=== PATIENT | female | born 1950 | race Caucasian/White ===

== ENCOUNTER 2019-12-27 23:34 | Emergency (ER) | payer MEDICARE, MEDICAID ==
[~2019-12-27] VITALS: Ht 157.5 cm; Wt 63.6 kg
[2019-12-27] MEDS ORDERED: normal saline 1000ML IV soln IVB ONE (23:40)
--- NOTE | 2019-12-27 23:54 | NUR ---
pt to CT now with stretcher.
[2019-12-28 00:05] LABS: BASOPHILS # (AUTO) 0.1 X10'3 (0-0.2); BASOPHILS % (AUTO) 0.7 % (0-1); EOSINOPHILS # (AUTO) 0.1 X10'3 (0-0.9); EOSINOPHILS % (AUTO) 0.9 % (0-6); HEMOGLOBIN 12.5 g/dl (12.0-16.0); LYMPHOCYTES % (AUTO) 24.8 % (21-51); MEAN CORPUSCULAR HEMOGLOBIN 31.6 PG (27.0-31.0); MEAN CORPUSCULAR HGB CONC 34.6 g/dL (33.0-36.5); MEAN CORPUSCULAR VOLUME 91.5 FL (78-98); MEAN PLATELET VOLUME 7.4 FL (7.4-10.4); MONOCYTES # (AUTO) 0.9 X10'3 (0-0.9); NEUTROPHILS # (AUTO) 4.9 X10'3 (1.8-7.7); NEUTROPHILS % (AUTO) 62.6 % (42-75); PLATELET COUNT 331 X10'3 (140-440); RED BLOOD COUNT 3.94 X10'6 (4.20-5.60); RED CELL DISTRIBUTION WIDTH 13.5 % (11.5-14.5); WHITE BLOOD COUNT 7.9 X10'3 (4.5-11.0)
--- NOTE | 2019-12-28 00:09 | NUR ---
pt back from CT. Up to BS commode, she did well. She did not void, she thought she had to. Back to the [place], hooked up to the monitor. She has her cellphone, she wants to call her sister.
[2019-12-28 00:15] LABS: D-DIMER 0.41 MG/L FEU (0-0.50)
[2019-12-28 00:19] LABS: ALANINE AMINOTRANSFERASE 28 U/L (12-78); ALBUMIN 3.2 G/DL (3.4-5.0); ALBUMIN/GLOBULIN RATIO 1.1 (1.1-1.5); ALKALINE PHOSPHATASE 103 IU/L (46-116); ANION GAP 4 (8-16); ASPARTATE AMINO TRANSFERASE 17 U/L (10-37); BILIRUBIN,TOTAL 0.3 MG/DL (0.1-1.0); BLOOD UREA NITROGEN 15 MG/DL (7-18); BUN/CREATININE RATIO 22.1 (6.6-38.0); CALCIUM 8.5 MG/DL (8.5-10.1); CHLORIDE 101 MMOL/L (99-107); CREATININE 0.68 MG/DL (0.40-0.90); GLUCOSE 102 MG/DL (70-104); SODIUM 135 MMOL/L (135-145); TOTAL CARBON DIOXIDE 30.2 MMOL/L (24-32); eGFR 86 ML/MIN
[2019-12-28] MEDS ORDERED: normal saline 1000ML IV soln IVB ONE (00:30)
[2019-12-28 01:01] VITALS: BP 142/86
== END 2019-12-28 01:03 | disposition home or self-care (01) ==
LOC: ER 23:36
DX: S00.83XA Contusion of other part of head, initial encounter (principal); S20.312A Abrasion of left front wall of thorax, initial encounter; E86.0 Dehydration; R55 Syncope and collapse; I10 Essential (primary) hypertension; Z98.890 Other specified postprocedural states; Z88.8 Allergy status to other drugs, medicaments and biological substances; W18.39XA Other fall on same level, initial encounter; Y93.89 Activity, other specified; Y92.89 Other specified places as the place of occurrence of the external cause; Y99.8 Other external cause status
CPT/HCPCS: 36415; 70450; 71045; 80053; 83880; 84484; 85025; 85379; 93005; 96360; 99284; J7030

== ENCOUNTER 2020-04-07 16:11 | Emergency (ER) | payer MEDICARE, MEDICAID ==
[~2020-04-07] VITALS: Ht 157.5 cm; Wt 2.2 kg
[~2020-04-07 16:11] MED LIST: ACYC200C PO; ARIP5TAB60 PO; ESOM40CA54 PO; LURA60TA2 PO; MIRT15TA PO
[2020-04-07 16:46] LABS: BASOPHILS % (AUTO) 0.6 % (0-1); EOSINOPHILS # (AUTO) 0.1 X10'3 (0-0.9); EOSINOPHILS % (AUTO) 2.3 % (0-6); HEMATOCRIT 33.2 % (35.0-45.0); HEMOGLOBIN 10.9 g/dl (12.0-16.0); LYMPHOCYTES # (AUTO) 1.2 X10'3 (1.1-4.8); LYMPHOCYTES % (AUTO) 18.6 % (21-51); MEAN CORPUSCULAR HEMOGLOBIN 30.2 PG (27.0-31.0); MEAN CORPUSCULAR HGB CONC 32.9 g/dL (33.0-36.5); MEAN CORPUSCULAR VOLUME 91.8 FL (78-98); MEAN PLATELET VOLUME 8.7 FL (7.4-10.4); MONOCYTES # (AUTO) 1.3 X10'3 (0-0.9); MONOCYTES % (AUTO) 21.3 % (2-12); NEUTROPHILS # (AUTO) 3.6 X10'3 (1.8-7.7); NEUTROPHILS % (AUTO) 57.2 % (42-75); PLATELET COUNT 155 X10'3 (140-440); RED BLOOD COUNT 3.62 X10'6 (4.20-5.60); RED CELL DISTRIBUTION WIDTH 15.4 % (11.5-14.5); WHITE BLOOD COUNT 6.3 X10'3 (4.5-11.0)
[2020-04-07 16:55] LABS: ALANINE AMINOTRANSFERASE 13 U/L (12-78); ALBUMIN 2.8 G/DL (3.4-5.0); ALKALINE PHOSPHATASE 97 IU/L (46-116); ANION GAP 1 (8-16); ASPARTATE AMINO TRANSFERASE 11 U/L (10-37); BILIRUBIN,TOTAL 0.2 MG/DL (0.1-1.0); BLOOD UREA NITROGEN 24 MG/DL (7-18); BUN/CREATININE RATIO 25.8 (6.6-38.0); CALCIUM 8.3 MG/DL (8.5-10.1); CHLORIDE 110 MMOL/L (99-107); CREATININE 0.93 MG/DL (0.40-0.90); GLUCOSE 97 MG/DL (70-104); POTASSIUM 4.4 MMOL/L (3.5-5.1); SODIUM 143 MMOL/L (135-145); TOTAL CARBON DIOXIDE 32.4 MMOL/L (24-32); TOTAL PROTEIN 5.6 G/DL (6.4-8.2); eGFR 60 ML/MIN
[2020-04-07 17:03] LABS: MAGNESIUM 2.1 MG/DL (1.5-2.4)
[2020-04-07] MEDS ORDERED: DOXYCYCLINE 100MG CAPSULE PO STA (17:43)
[2020-04-07 17:44] LABS: CLARITY,URINE CLEAR (Clear); COLOR,URINE STRAW (Yellow); GLUCOSE, URINE NEGATIVE (Neg); KETONES,URINE NEGATIVE (Neg); LEUKOCYTE ESTERASE ,URINE TRACE (Neg); NITRITES, URINE NEGATIVE (Neg); OCCULT BLOOD,URINE NEGATIVE (Neg); PROTEIN,URINE NEGATIVE (Neg); UROBILINOGEN,URINE 0.2 E.U/dL (0.2-1.0)
[2020-04-07] MEDS ORDERED: furosemide 20MG tablet PO ONE (17:45)
[2020-04-07 17:47] LABS: UA COLLECTION TYPE VOIDED
[2020-04-07 17:50] LABS: URINE AMPHETAMINE SCREEN NEGATIVE (Neg); URINE BARBITUATE SCREEN NEGATIVE (Neg); URINE BENZODIAZEPINES SCREEN NEGATIVE (Neg); URINE CANNABINOID SCREEN NEGATIVE (Neg); URINE COCAINE SCREEN NEGATIVE (Neg); URINE METHADONE SCREEN NEGATIVE (Neg); URINE OPIATE SCREEN NEGATIVE (Neg); URINE PHENCYCLIDINE SCREEN NEGATIVE (Neg); WBC,URINE 0-4 /HPF (0-4)
[2020-04-07 17:51] LABS: BACTERIA,URINE NONE SEEN /HPF (Neg); RBC,URINE 0-2 /HPF (0-2); SQUAMOUS EPITHELIAL CELL,UR FEW /LPF (FEW)
[2020-04-07 17:56] LABS: TOTAL CELLS COUNTED 100
[2020-04-07] MEDS ORDERED: FURO-150 PO (17:57)
[2020-04-07] MEDS ORDERED: DOXY100C77 PO (17:57)
[2020-04-07 17:58] LABS: ANISOCYTOSIS FEW; HYPOCHROMASIA 1+; PLATELET ESTIMATE NORMAL
--- NOTE | 2020-04-07 18:00 | NUR ---
PT URINATED BEFORE GETTING DISCAHRGE.
[2020-04-07 18:18] VITALS: BP 128/75
== END 2020-04-07 18:18 | disposition home or self-care (01) ==
LOC: ER 16:11
DX: L03.116 Cellulitis of left lower limb (principal); L03.115 Cellulitis of right lower limb; R60.0 Localized edema; I10 Essential (primary) hypertension; Z98.890 Other specified postprocedural states; Z88.8 Allergy status to other drugs, medicaments and biological substances; Z79.899 Other long term (current) drug therapy
CPT/HCPCS: 36415; 71045; 80053; 80305; 81001; 83735; 83880; 84145; 85025; 87088; 93005; 99285

== ENCOUNTER 2020-11-09 16:15 | Emergency (ER) | payer MEDICARE, MEDICAID ==
[~2020-11-09] VITALS: Ht 149.9 cm; Wt 81.8 kg
[~2020-11-09 16:15] MED LIST changes: +LURA60TA PO; -LURA60TA2 PO; +MIRT-116 PO; -MIRT15TA PO
--- NOTE | 2020-11-09 16:49 | NUR ---
PT TO CT
[2020-11-09 17:26] LABS: CLARITY,URINE CLEAR (Clear); COLOR,URINE YELLOW (Yellow); GLUCOSE, URINE NEGATIVE (Neg); KETONES,URINE NEGATIVE (Neg); LEUKOCYTE ESTERASE ,URINE NEGATIVE (Neg); NITRITES, URINE NEGATIVE (Neg); OCCULT BLOOD,URINE TRACE-INTACT (Neg); PROTEIN,URINE NEGATIVE (Neg); UROBILINOGEN,URINE 0.2 E.U/dL (0.2-1.0)
[2020-11-09 17:28] LABS: UA COLLECTION TYPE STRAIGHT CATH
[2020-11-09 17:32] LABS: BACTERIA,URINE NONE SEEN /HPF (Neg); MUCUS STRANDS NONE SEEN /LPF (Neg); RBC,URINE 0-2 /HPF (0-2); SQUAMOUS EPITHELIAL CELL,UR NONE SEEN /LPF (FEW); WBC,URINE 0-4 /HPF (0-4)
[2020-11-09 17:34] LABS: URINE AMPHETAMINE SCREEN NEGATIVE (Neg); URINE BARBITUATE SCREEN NEGATIVE (Neg); URINE BENZODIAZEPINES SCREEN NEGATIVE (Neg); URINE CANNABINOID SCREEN NEGATIVE (Neg); URINE COCAINE SCREEN NEGATIVE (Neg); URINE METHADONE SCREEN NEGATIVE (Neg); URINE OPIATE SCREEN NEGATIVE (Neg); URINE PHENCYCLIDINE SCREEN NEGATIVE (Neg)
[2020-11-09 17:53] LABS: BASOPHILS % (AUTO) 0.1 % (0-1); EOSINOPHILS % (AUTO) 0 % (0-6); HEMATOCRIT 41.5 % (35.0-45.0); HEMOGLOBIN 13.9 g/dl (12.0-16.0); MEAN CORPUSCULAR HEMOGLOBIN 32.1 PG (27.0-31.0); MEAN CORPUSCULAR HGB CONC 33.6 g/dL (33.0-36.5); MEAN CORPUSCULAR VOLUME 95.4 FL (78-98); MONOCYTES # (AUTO) 2.1 X10'3 (0-0.9); MONOCYTES % (AUTO) 16.1 % (2-12); NEUTROPHILS # (AUTO) 9.8 X10'3 (1.8-7.7); NEUTROPHILS % (AUTO) 75.8 % (42-75); PLATELET COUNT 201 X10'3 (140-440); RED BLOOD COUNT 4.35 X10'6 (4.20-5.60); RED CELL DISTRIBUTION WIDTH 13.6 % (11.5-14.5)
[2020-11-09 18:10] LABS: ALANINE AMINOTRANSFERASE 37 U/L (12-78); ALBUMIN/GLOBULIN RATIO 0.9 (1.1-1.5); ALKALINE PHOSPHATASE 90 IU/L (46-116); ANION GAP 5 (8-16); ASPARTATE AMINO TRANSFERASE 19 U/L (10-37); BILIRUBIN,TOTAL 0.4 MG/DL (0.1-1.0); BLOOD UREA NITROGEN 25 MG/DL (7-18); BUN/CREATININE RATIO 28.7 (6.6-38.0); CALCIUM 8.3 MG/DL (8.5-10.1); CHLORIDE 103 MMOL/L (99-107); CREATININE 0.87 MG/DL (0.40-0.90); GLUCOSE 95 MG/DL (70-104); POTASSIUM 4.3 MMOL/L (3.5-5.1); SODIUM 136 MMOL/L (135-145); TOTAL PROTEIN 6.3 G/DL (6.4-8.2); eGFR 64 ML/MIN
[2020-11-09 18:13] LABS: TROPONIN I < 0.04 NG/ML (0.0-0.05); VALPROATE 56 UG/ML (50-100)
[2020-11-09 18:22] LABS: ETHANOL < 0.010 GM/DL (0.0-0.010)
--- NOTE | 2020-11-09 19:08 | NUR ---
1845 incontinant of urine
--- NOTE | 2020-11-09 19:36 | NUR ---
daughter Grazyna [phone] daughter reports she will need to make arragements for mother to have help at home if she is dc home
--- NOTE | 2020-11-09 20:03 | NUR ---
Grazyna called to notify her to picker her mother
[2020-11-09 20:58] VITALS: BP 145/88
[2020-11-10] MEDS ORDERED: BENZ1TAB7 PO ×2 (22:55)
[2020-11-10] MEDS ORDERED: FLUP1TAB PO (22:55)
[2020-11-10] MEDS ORDERED: POTA10TA19 PO (22:55)
[2020-11-10] MEDS ORDERED: OLAN5TAB5 PO (22:55)
[2020-11-10] MEDS ORDERED: DIVA-81 PO ×2 (22:55)
[2020-11-10] MEDS ORDERED: TRAZ-256 PO (22:55)
[2020-11-10] MEDS ORDERED: HYDR12.55 PO (22:55)
[2020-11-10] MEDS ORDERED: LITH150C8 PO (22:55)
[2020-11-11] MEDS ORDERED: LANS30CA56 PO (16:32)
== END 2020-11-09 20:28 | disposition home or self-care (01) ==
LOC: ER 16:16
DX: R53.1 Weakness (principal); I10 Essential (primary) hypertension; Z88.6 Allergy status to analgesic agent; Z88.8 Allergy status to other drugs, medicaments and biological substances; Z79.899 Other long term (current) drug therapy
CPT/HCPCS: 70450; 71045; 80053; 80164; 80178; 80305; 80320; 81001; 84484; 85025; 93005; 99285

== ENCOUNTER 2021-08-09 14:21 | Emergency (ER) | payer MEDICARE, MEDICAID ==
[~2021-08-09] VITALS: Ht 152.4 cm; Wt 87.1 kg
[~2021-08-09 14:21] MED LIST changes: -ACYC200C PO; -ARIP5TAB60 PO; +BENZ1TAB7 PO; +DIVA-81 PO; -ESOM40CA54 PO; +FLUP1TAB PO; +HYDR12.55 PO; +LANS30CA56 PO; +LITH150C8 PO; -LURA60TA PO; -MIRT-116 PO; +OLAN5TAB5 PO; +POTA10TA19 PO; +TRAZ-256 PO
[2021-08-09 15:26] VITALS: BP 144/79
[2021-08-09 17:27] LABS: BASOPHILS # (AUTO) 0.1 X10'3 (0-0.2); BASOPHILS % (AUTO) 0.7 % (0-1); EOSINOPHILS # (AUTO) 0.1 X10'3 (0-0.9); EOSINOPHILS % (AUTO) 1.2 % (0-6); HEMATOCRIT 42.4 % (35.0-45.0); LYMPHOCYTES # (AUTO) 2.9 X10'3 (1.1-4.8); LYMPHOCYTES % (AUTO) 30.9 % (21-51); MEAN CORPUSCULAR HEMOGLOBIN 31.1 PG (27.0-31.0); MEAN CORPUSCULAR VOLUME 94.2 FL (78-98); MEAN PLATELET VOLUME 8.7 FL (7.4-10.4); MONOCYTES % (AUTO) 10.6 % (2-12); NEUTROPHILS # (AUTO) 5.3 X10'3 (1.8-7.7); NEUTROPHILS % (AUTO) 56.6 % (42-75); PLATELET COUNT 302 X10'3 (140-440); RED CELL DISTRIBUTION WIDTH 14.7 % (11.5-14.5); WHITE BLOOD COUNT 9.4 X10'3 (4.5-11.0)
[2021-08-09 17:37] LABS: ALBUMIN 3.2 G/DL (3.4-5.0); ANION GAP 2 (8-16); BLOOD UREA NITROGEN 15 MG/DL (7-18); BUN/CREATININE RATIO 18.5 (6.6-38.0); CHLORIDE 104 MMOL/L (99-107); CREATININE 0.81 MG/DL (0.40-0.90); GLUCOSE 86 MG/DL (70-104); POTASSIUM 4.2 MMOL/L (3.5-5.1); SODIUM 138 MMOL/L (135-145); TOTAL CARBON DIOXIDE 31.9 MMOL/L (24-32); eGFR 70 ML/MIN
== END 2021-08-09 20:15 | disposition home or self-care (01) ==
LOC: ER 14:22
DX: R61 Generalized hyperhidrosis (principal); Z20.822 Contact with and (suspected) exposure to COVID-19; I10 Essential (primary) hypertension; Z98.891 History of uterine scar from previous surgery; Z98.890 Other specified postprocedural states; Z88.8 Allergy status to other drugs, medicaments and biological substances; Z79.899 Other long term (current) drug therapy; Z86.11 Personal history of tuberculosis
CPT/HCPCS: 36415; 71045; 80048; 85025; 99284; U0003; U0005

== ENCOUNTER 2023-05-24 22:24 | Emergency (ER) | payer MEDICARE, MEDICAID ==
[~2023-05-24] VITALS: Ht 152.4 cm; Wt 87.2 kg
[~2023-05-24 22:24] MED LIST changes: -BENZ1TAB7 PO; +BENZ1TAB78 PO; +POTA-192 PO; -POTA10TA19 PO
[2023-05-25] MEDS ORDERED: DOXYCYCLINE 100MG CAPSULE PO STA (01:48)
[2023-05-25] MEDS ORDERED: HYDROcodone & chlorphen. 10-8mg/5ml oral susp. PO ONE (01:50)
[2023-05-25] MEDS ORDERED: dexamethasone 4mg/ml inj IM ONE (01:50)
[2023-05-25] MEDS ORDERED: GUAI-692 PO (01:52)
[2023-05-25] MEDS ORDERED: DOXY-356 PO (01:52)
[2023-05-25] MEDS ORDERED: guaiFENesin 200mg/20mg codeine phos 10ml UD oral syrup PO ONE (02:10)
[2023-05-25 02:31] VITALS: BP 163/84
== END 2023-05-25 02:34 | disposition home or self-care (01) ==
LOC: ER 22:25
DX: J20.9 Acute bronchitis, unspecified (principal); F31.9 Bipolar disorder, unspecified; I10 Essential (primary) hypertension; Z88.8 Allergy status to other drugs, medicaments and biological substances; Z79.899 Other long term (current) drug therapy; Z88.5 Allergy status to narcotic agent
CPT/HCPCS: 71046; 96372; 99284; J1100

== ENCOUNTER 2023-08-27 10:37 | Emergency (ER) | payer MEDICARE, MEDICAID ==
[~2023-08-27] VITALS: Ht 152.4 cm; Wt 85.0 kg
[2023-08-27 10:46] VITALS: BP 131/81; TEMP 98
[2023-08-27 11:23] LABS: BASOPHILS % (AUTO) 0.4 % (0-1); EOSINOPHILS # (AUTO) 0.2 X10'3 (0-0.9); EOSINOPHILS % (AUTO) 2.4 % (0-6); HEMATOCRIT 40.1 % (35.0-45.0); HEMOGLOBIN 13.2 g/dl (12.0-16.0); LYMPHOCYTES # (AUTO) 1.3 X10'3 (1.1-4.8); MEAN CORPUSCULAR HEMOGLOBIN 30.4 PG (27.0-31.0); MEAN CORPUSCULAR VOLUME 92.3 FL (78-98); MEAN PLATELET VOLUME 7.9 FL (7.4-10.4); MONOCYTES # (AUTO) 0.7 X10'3 (0-0.9); MONOCYTES % (AUTO) 9.8 % (2-12); NEUTROPHILS # (AUTO) 5.2 X10'3 (1.8-7.7); NEUTROPHILS % (AUTO) 69.4 % (42-75); PLATELET COUNT 298 X10'3 (140-440); RED BLOOD COUNT 4.35 X10'6 (4.20-5.60); RED CELL DISTRIBUTION WIDTH 14.9 % (11.5-14.5); WHITE BLOOD COUNT 7.5 X10'3 (4.5-11.0)
[2023-08-27 11:31] LABS: ALANINE AMINOTRANSFERASE 22 U/L (12-78); ALBUMIN 3.2 G/DL (3.4-5.0); ALBUMIN/GLOBULIN RATIO 0.9 (1.1-1.5); ALKALINE PHOSPHATASE 106 IU/L (46-116); ANION GAP 6 (8-16); ASPARTATE AMINO TRANSFERASE 18 U/L (10-37); BILIRUBIN,TOTAL 0.3 MG/DL (0.1-1.0); BLOOD UREA NITROGEN 15 MG/DL (7-18); BUN/CREATININE RATIO 20.5 (10.0-20.0); CALCIUM 8.7 MG/DL (8.5-10.1); CHLORIDE 107 MMOL/L (99-107); CREATININE 0.73 MG/DL (0.40-0.90); GLUCOSE 128 MG/DL (70-104); POTASSIUM 3.9 MMOL/L (3.5-5.1); SODIUM 140 MMOL/L (135-145); TOTAL CARBON DIOXIDE 26.9 MMOL/L (24-32); TOTAL PROTEIN 6.7 G/DL (6.4-8.2); eCRCL 48 ML/MIN; eGFR 78 ML/MIN
[2023-08-27 11:39] LABS: PRO BRAIN NATRIURETIC PEPTIDE 100 PG/ML (0-125)
[2023-08-27] MEDS ORDERED: albuterol 2.5 MG/3 ML nebule NEB ONE (13:00)
[2023-08-27 13:11] LABS: BILIRUBIN,URINE NEGATIVE (Neg); CLARITY,URINE CLEAR (Clear); COLOR,URINE STRAW (Yellow); GLUCOSE, URINE NEGATIVE (Neg); KETONES,URINE NEGATIVE (Neg); LEUKOCYTE ESTERASE ,URINE NEGATIVE (Neg); NITRITES, URINE NEGATIVE (Neg); OCCULT BLOOD,URINE TRACE-INTACT (Neg); PH,URINE 7.5 (4.8-8.0); PROTEIN,URINE NEGATIVE (Neg); UROBILINOGEN,URINE 0.2 E.U/dL (0.2-1.0)
[2023-08-27 13:13] VITALS: PULSE 78; RESP 18; O2SAT 98
[2023-08-27 13:14] LABS: UA COLLECTION TYPE CLN CATCH MIDSTREAM
[2023-08-27 13:18] VITALS: PULSE 86; RESP 20; O2SAT 100
[2023-08-27 13:39] LABS: MUCUS STRANDS FEW /LPF (Neg); SQUAMOUS EPITHELIAL CELL,UR FEW /LPF (FEW); TRANSITIONAL EPI CELLS,URINE FEW /HPF
[2023-08-27 13:40] LABS: BACTERIA,URINE FEW /HPF (Neg); RBC,URINE 0-2 /HPF (0-2); WBC,URINE 0-4 /HPF (0-4)
--- NOTE | 2023-08-27 15:57 | NUR ---
AGREE WITH STORE MGR'S GENERAL ASSESSMENT. PT IN STABLE CONDITION.
== END 2023-08-27 18:00 | disposition left against medical advice (07) ==
LOC: ER 10:38
DX: J98.01 Acute bronchospasm (principal); F31.81 Bipolar II disorder; I10 Essential (primary) hypertension; J45.909 Unspecified asthma, uncomplicated; Z87.891 Personal history of nicotine dependence; Z98.891 History of uterine scar from previous surgery; Z88.8 Allergy status to other drugs, medicaments and biological substances; Z79.899 Other long term (current) drug therapy
CPT/HCPCS: 36415; 71045; 80053; 81001; 83880; 84484; 85025; 93005; 94640; 94760; 99281; 99285

== ENCOUNTER 2023-09-28 12:28 | Emergency (ER) | payer MEDICARE, MEDICAID ==
[~2023-09-28] VITALS: Ht 152.4 cm; Wt 88.9 kg
[2023-09-28 13:40] LABS: BILIRUBIN,URINE NEGATIVE (Neg); CLARITY,URINE SLIGHTLY CLOUDY (Clear); COLOR,URINE YELLOW (Yellow); GLUCOSE, URINE NEGATIVE (Neg); KETONES,URINE NEGATIVE (Neg); LEUKOCYTE ESTERASE ,URINE NEGATIVE (Neg); NITRITES, URINE NEGATIVE (Neg); OCCULT BLOOD,URINE NEGATIVE (Neg); PROTEIN,URINE NEGATIVE (Neg); UROBILINOGEN,URINE 0.2 E.U/dL (0.2-1.0)
[2023-09-28 13:46] LABS: UA COLLECTION TYPE CLN CATCH MIDSTREAM
[2023-09-28 13:47] LABS: BACTERIA,URINE NONE SEEN /HPF (Neg); SQUAMOUS EPITHELIAL CELL,UR FEW /LPF (FEW); WBC,URINE 0-4 /HPF (0-4)
[2023-09-28 14:07] LABS: BASOPHILS % (AUTO) 0.3 % (0-1); EOSINOPHILS # (AUTO) 0.2 X10'3 (0-0.9); EOSINOPHILS % (AUTO) 2.4 % (0-6); HEMATOCRIT 41.1 % (35.0-45.0); HEMOGLOBIN 13.3 g/dl (12.0-16.0); LYMPHOCYTES # (AUTO) 1.8 X10'3 (1.1-4.8); LYMPHOCYTES % (AUTO) 25.5 % (21-51); MEAN CORPUSCULAR HEMOGLOBIN 29.8 PG (27.0-31.0); MEAN CORPUSCULAR HGB CONC 32.5 g/dL (33.0-36.5); MEAN CORPUSCULAR VOLUME 91.9 FL (78-98); MONOCYTES # (AUTO) 0.9 X10'3 (0-0.9); MONOCYTES % (AUTO) 13.2 % (2-12); NEUTROPHILS # (AUTO) 4.1 X10'3 (1.8-7.7); NEUTROPHILS % (AUTO) 58.6 % (42-75); PLATELET COUNT 301 X10'3 (140-440); RED BLOOD COUNT 4.47 X10'6 (4.20-5.60); RED CELL DISTRIBUTION WIDTH 14.5 % (11.5-14.5); WHITE BLOOD COUNT 7.1 X10'3 (4.5-11.0)
[2023-09-28 14:14] VITALS: BP 141/70; PULSE 79; RESP 16; TEMP 98; O2SAT 94
[2023-09-28 14:20] LABS: ALANINE AMINOTRANSFERASE 14 U/L (12-78); ALBUMIN 3.3 G/DL (3.4-5.0); ALKALINE PHOSPHATASE 104 IU/L (46-116); ANION GAP 7 (8-16); ASPARTATE AMINO TRANSFERASE 12 U/L (10-37); BILIRUBIN,TOTAL 0.4 MG/DL (0.1-1.0); BLOOD UREA NITROGEN 16 MG/DL (7-18); BUN/CREATININE RATIO 21.1 (10.0-20.0); CHLORIDE 104 MMOL/L (99-107); CREATININE 0.76 MG/DL (0.40-0.90); GLUCOSE 102 MG/DL (70-104); LIPASE 23 U/L (16-77); POTASSIUM 4.4 MMOL/L (3.5-5.1); SODIUM 139 MMOL/L (135-145); TOTAL CARBON DIOXIDE 27.8 MMOL/L (24-32); TOTAL PROTEIN 6.5 G/DL (6.4-8.2); eCRCL 47 ML/MIN; eGFR 75 ML/MIN
[2023-09-28] MEDS ORDERED: CIPR-259 PO (16:56)
== END 2023-09-28 17:09 | disposition home or self-care (01) ==
LOC: ER 12:29
DX: N39.0 Urinary tract infection, site not specified (principal); R31.9 Hematuria, unspecified; I10 Essential (primary) hypertension; E78.00 Pure hypercholesterolemia, unspecified; F31.9 Bipolar disorder, unspecified; F20.9 Schizophrenia, unspecified; Z88.8 Allergy status to other drugs, medicaments and biological substances; Z79.899 Other long term (current) drug therapy
CPT/HCPCS: 36415; 80053; 81001; 83690; 85025; 99283

== ENCOUNTER 2023-10-04 17:18 | Emergency (ER) | payer MEDICARE, MEDICAID ==
[~2023-10-04] VITALS: Ht 149.9 cm; Wt 89.4 kg
[~2023-10-04 17:18] MED LIST changes: +CIPR-259 PO
[2023-10-04 18:09] LABS: BASOPHILS % (AUTO) 0.5 % (0-1); EOSINOPHILS # (AUTO) 0.2 X10'3 (0-0.9); HEMOGLOBIN 13.5 g/dl (12.0-16.0); LYMPHOCYTES # (AUTO) 2.2 X10'3 (1.1-4.8); LYMPHOCYTES % (AUTO) 25.9 % (21-51); MEAN CORPUSCULAR HEMOGLOBIN 30.1 PG (27.0-31.0); MEAN CORPUSCULAR VOLUME 91.2 FL (78-98); MEAN PLATELET VOLUME 8.6 FL (7.4-10.4); MONOCYTES # (AUTO) 1.2 X10'3 (0-0.9); MONOCYTES % (AUTO) 13.9 % (2-12); NEUTROPHILS # (AUTO) 4.8 X10'3 (1.8-7.7); NEUTROPHILS % (AUTO) 57.7 % (42-75); PLATELET COUNT 361 X10'3 (140-440); RED BLOOD COUNT 4.49 X10'6 (4.20-5.60); RED CELL DISTRIBUTION WIDTH 14.2 % (11.5-14.5); WHITE BLOOD COUNT 8.3 X10'3 (4.5-11.0)
[2023-10-04 18:20] LABS: ALANINE AMINOTRANSFERASE 27 U/L (12-78); ALBUMIN 3.3 G/DL (3.4-5.0); ALBUMIN/GLOBULIN RATIO 0.9 (1.1-1.5); ALKALINE PHOSPHATASE 111 IU/L (46-116); AMYLASE 31 U/L (25-115); ANION GAP 6 (8-16); ASPARTATE AMINO TRANSFERASE 19 U/L (10-37); BILIRUBIN,TOTAL 0.5 MG/DL (0.1-1.0); BLOOD UREA NITROGEN 17 MG/DL (7-18); CALCIUM 9.2 MG/DL (8.5-10.1); CHLORIDE 103 MMOL/L (99-107); CREATININE 0.81 MG/DL (0.40-0.90); GLUCOSE 98 MG/DL (70-104); LIPASE 22 U/L (16-77); POTASSIUM 3.9 MMOL/L (3.5-5.1); SODIUM 138 MMOL/L (135-145); TOTAL CARBON DIOXIDE 29.4 MMOL/L (24-32); TOTAL PROTEIN 6.8 G/DL (6.4-8.2); eCRCL 42 ML/MIN; eGFR 69 ML/MIN
[2023-10-04] MEDS ORDERED: iohexol 300mg/ml 100ml inj. ONE (18:55)
[2023-10-04] MEDS ORDERED: glycerin ADULT rectal suppository RC ONE (19:55)
[2023-10-04] MEDS ORDERED: lactulose 20gm/30ml cup PO ONE (19:55)
[2023-10-04] MEDS ORDERED: magnesium citrate 296ml oral solution PO ONE (19:55)
[2023-10-04] MEDS ORDERED: LACT10SO3 PO (19:59)
[2023-10-04] MEDS ORDERED: GLYC-23 RC (19:59)
[2023-10-04 20:08] LABS: BILIRUBIN,URINE NEGATIVE (Neg); CLARITY,URINE CLEAR (Clear); COLOR,URINE STRAW (Yellow); GLUCOSE, URINE NEGATIVE (Neg); KETONES,URINE NEGATIVE (Neg); LEUKOCYTE ESTERASE ,URINE NEGATIVE (Neg); NITRITES, URINE NEGATIVE (Neg); OCCULT BLOOD,URINE TRACE-INTACT (Neg); PH,URINE 7.5 (4.8-8.0); PROTEIN,URINE NEGATIVE (Neg); UROBILINOGEN,URINE 0.2 E.U/dL (0.2-1.0)
[2023-10-04 20:10] LABS: UA COLLECTION TYPE CLN CATCH MIDSTREAM
[2023-10-04 20:16] LABS: BACTERIA,URINE NONE SEEN /HPF (Neg); RBC,URINE 0-2 /HPF (0-2); SQUAMOUS EPITHELIAL CELL,UR NONE SEEN /LPF (FEW); TRANSITIONAL EPI CELLS,URINE FEW /HPF; WBC,URINE 0-4 /HPF (0-4)
[2023-10-04] MEDS: bisacodyl 10mg suppository rectal RC STA ×2 (20:54→20:59)
[2023-10-04 21:08] VITALS: BP 148/118; PULSE 84; TEMP 98; O2SAT 99
[2023-10-04 21:11] VITALS: RESP 16
== END 2023-10-04 21:51 | disposition home or self-care (01) ==
LOC: ER 17:19
DX: K59.00 Constipation, unspecified (principal); R10.32 Left lower quadrant pain; I10 Essential (primary) hypertension; J45.909 Unspecified asthma, uncomplicated; F31.9 Bipolar disorder, unspecified; Z88.8 Allergy status to other drugs, medicaments and biological substances; Z88.1 Allergy status to other antibiotic agents; Z79.899 Other long term (current) drug therapy
CPT/HCPCS: 36415; 74177; 80053; 81001; 82150; 83605; 83690; 85025; 99285; J3490; Q9967

== ENCOUNTER 2023-11-26 12:50 | Emergency (ER) | payer MEDICARE, MEDICAID ==
[~2023-11-26] VITALS: Ht 149.9 cm; Wt 89.0 kg
[~2023-11-26 12:50] MED LIST changes: -CIPR-259 PO; +GLYC-23 RC; +LACT10SO3 PO
[2023-11-26 12:56] VITALS: TEMP 97.8
[2023-11-26 13:42] LABS: BASOPHILS % (AUTO) 0.5 % (0-1); EOSINOPHILS # (AUTO) 0.1 X10'3 (0-0.9); EOSINOPHILS % (AUTO) 1.5 % (0-6); HEMATOCRIT 39.3 % (35.0-45.0); HEMOGLOBIN 12.9 g/dl (12.0-16.0); LYMPHOCYTES # (AUTO) 1.4 X10'3 (1.1-4.8); LYMPHOCYTES % (AUTO) 18.5 % (21-51); MEAN CORPUSCULAR HEMOGLOBIN 29.9 PG (27.0-31.0); MEAN CORPUSCULAR HGB CONC 32.8 g/dL (33.0-36.5); MEAN CORPUSCULAR VOLUME 91.2 FL (78-98); MONOCYTES % (AUTO) 12.9 % (2-12); NEUTROPHILS # (AUTO) 5.1 X10'3 (1.8-7.7); NEUTROPHILS % (AUTO) 66.6 % (42-75); PLATELET COUNT 291 X10'3 (140-440); RED BLOOD COUNT 4.31 X10'6 (4.20-5.60); RED CELL DISTRIBUTION WIDTH 14.1 % (11.5-14.5); WHITE BLOOD COUNT 7.7 X10'3 (4.5-11.0)
[2023-11-26 13:54] LABS: ALANINE AMINOTRANSFERASE 23 U/L (12-78); ALBUMIN 3.2 G/DL (3.4-5.0); ALBUMIN/GLOBULIN RATIO 0.8 (1.1-1.5); ALKALINE PHOSPHATASE 102 IU/L (46-116); ANION GAP 6 (8-16); ASPARTATE AMINO TRANSFERASE 12 U/L (10-37); BILIRUBIN,TOTAL 0.4 MG/DL (0.1-1.0); BLOOD UREA NITROGEN 15 MG/DL (7-18); BUN/CREATININE RATIO 19.5 (10.0-20.0); CALCIUM 8.9 MG/DL (8.5-10.1); CHLORIDE 103 MMOL/L (99-107); CREATININE 0.77 MG/DL (0.40-0.90); GLUCOSE 105 MG/DL (70-104); LIPASE 24 U/L (16-77); POTASSIUM 3.8 MMOL/L (3.5-5.1); SODIUM 139 MMOL/L (135-145); TOTAL CARBON DIOXIDE 29.8 MMOL/L (24-32); eCRCL 44 ML/MIN; eGFR 73 ML/MIN
[2023-11-26 17:34] LABS: BILIRUBIN,URINE NEGATIVE (Neg); CLARITY,URINE SLIGHTLY CLOUDY (Clear); COLOR,URINE STRAW (Yellow); GLUCOSE, URINE NEGATIVE (Neg); KETONES,URINE NEGATIVE (Neg); LEUKOCYTE ESTERASE ,URINE SMALL (Neg); NITRITES, URINE NEGATIVE (Neg); OCCULT BLOOD,URINE TRACE-INTACT (Neg); PH,URINE 5.5 (4.8-8.0); PROTEIN,URINE NEGATIVE (Neg); UA COLLECTION TYPE VOIDED; UROBILINOGEN,URINE 0.2 E.U/dL (0.2-1.0)
[2023-11-26 17:39] LABS: BACTERIA,URINE FEW /HPF (Neg); MUCUS STRANDS FEW /LPF (Neg); SQUAMOUS EPITHELIAL CELL,UR FEW /LPF (FEW); TRANSITIONAL EPI CELLS,URINE MODERATE /HPF; WBC CLUMPS,URINE FEW /HPF (NEGATIVE); WBC,URINE 20-30 /HPF (0-4)
[2023-11-26 19:28] VITALS: RESP 18
[2023-11-26] MEDS ORDERED: cephalexin 250mg capsule PO ONE (20:05)
[2023-11-26] MEDS ORDERED: CEPH-585 PO (20:06)
[2023-11-26 20:21] VITALS: BP 158/90; PULSE 85; O2SAT 97
== END 2023-11-26 20:23 | disposition home or self-care (01) ==
LOC: ER 12:51
DX: N39.0 Urinary tract infection, site not specified (principal); M19.90 Unspecified osteoarthritis, unspecified site; I10 Essential (primary) hypertension; J45.909 Unspecified asthma, uncomplicated; F31.9 Bipolar disorder, unspecified; Z88.8 Allergy status to other drugs, medicaments and biological substances; Z79.899 Other long term (current) drug therapy
CPT/HCPCS: 36415; 80053; 81001; 83690; 85025; 87088; 99285

== ENCOUNTER 2023-12-06 13:55 | Emergency (ER) | payer MEDICARE, MEDICAID ==
[~2023-12-06] VITALS: Ht 149.9 cm; Wt 88.1 kg
[~2023-12-06 13:55] MED LIST changes: +CEPH-585 PO
[2023-12-06 14:06] VITALS: BP 112/68; PULSE 98; RESP 18; TEMP 98; O2SAT 98
== END 2023-12-06 21:07 | disposition left against medical advice (07) ==
LOC: ER 13:56
DX: M25.562 Pain in left knee (principal); M25.561 Pain in right knee; Z53.21 Procedure and treatment not carried out due to patient leaving prior to being seen by health care provider
CPT/HCPCS: 99281

== ENCOUNTER 2024-01-10 03:00 | Emergency (ER) | payer MEDICARE, MEDICAID ==
[~2024-01-10] VITALS: Ht 149.9 cm; Wt 85.9 kg
[~2024-01-10 03:00] MED LIST changes: -CEPH-585 PO
[2024-01-10 03:01] VITALS: TEMP 97.9
[2024-01-10] MEDS: LORazepam 1 MG tablet PO ONE (03:37)
[2024-01-10 04:30] LABS: BASOPHILS # (AUTO) 0.1 X10'3 (0-0.2); BASOPHILS % (AUTO) 0.8 % (0-1); EOSINOPHILS # (AUTO) 0.2 X10'3 (0-0.9); EOSINOPHILS % (AUTO) 2.9 % (0-6); HEMATOCRIT 38.3 % (35.0-45.0); HEMOGLOBIN 12.7 g/dl (12.0-16.0); LYMPHOCYTES # (AUTO) 2.4 X10'3 (1.1-4.8); LYMPHOCYTES % (AUTO) 29.2 % (21-51); MEAN CORPUSCULAR HEMOGLOBIN 29.8 PG (27.0-31.0); MEAN CORPUSCULAR HGB CONC 33.1 g/dL (33.0-36.5); MONOCYTES % (AUTO) 11.9 % (2-12); NEUTROPHILS # (AUTO) 4.5 X10'3 (1.8-7.7); NEUTROPHILS % (AUTO) 55.2 % (42-75); PLATELET COUNT 306 X10'3 (140-440); RED BLOOD COUNT 4.26 X10'6 (4.20-5.60); RED CELL DISTRIBUTION WIDTH 14.6 % (11.5-14.5); WHITE BLOOD COUNT 8.2 X10'3 (4.5-11.0)
[2024-01-10 04:38] LABS: LITHIUM 0.8 MMOL/L (0.8-1.2)
[2024-01-10 04:46] LABS: ALBUMIN 3.1 G/DL (3.4-5.0); ANION GAP 7 (8-16); BLOOD UREA NITROGEN 15 MG/DL (7-18); BUN/CREATININE RATIO 15.8 (10.0-20.0); CALCIUM 7.6 MG/DL (8.5-10.1); CHLORIDE 108 MMOL/L (99-107); CREATININE 0.95 MG/DL (0.40-0.90); GLUCOSE 112 MG/DL (70-104); POTASSIUM 4.1 MMOL/L (3.5-5.1); PRO BRAIN NATRIURETIC PEPTIDE 51 PG/ML (0-125); SODIUM 145 MMOL/L (135-145); TOTAL CARBON DIOXIDE 29.6 MMOL/L (24-32); eCRCL 36 ML/MIN; eGFR 58 ML/MIN
[2024-01-10 08:13] VITALS: O2SAT 96
[2024-01-10 08:54] VITALS: BP 118/71; PULSE 61; RESP 15
== END 2024-01-10 08:56 | disposition home or self-care (01) ==
LOC: ER 03:00
DX: R06.00 Dyspnea, unspecified (principal); R42 Dizziness and giddiness; I10 Essential (primary) hypertension
CPT/HCPCS: 36415; 71045; 80048; 80178; 83880; 84484; 85025; 93005; 99285

== ENCOUNTER 2024-02-19 21:58 | Emergency (ER) | payer MEDICARE, MEDICAID ==
[~2024-02-19] VITALS: Ht 152.4 cm; Wt 85.5 kg
[2024-02-19 22:05] VITALS: BP 162/74; PULSE 76; TEMP 98.6; O2SAT 96
[2024-02-19 22:29] LABS: BASOPHILS # (AUTO) 0.1 X10'3 (0-0.2); BASOPHILS % (AUTO) 0.5 % (0-1); EOSINOPHILS # (AUTO) 0.2 X10'3 (0-0.9); EOSINOPHILS % (AUTO) 1.6 % (0-6); HEMATOCRIT 40.5 % (35.0-45.0); HEMOGLOBIN 13.7 g/dl (12.0-16.0); LYMPHOCYTES # (AUTO) 2.1 X10'3 (1.1-4.8); LYMPHOCYTES % (AUTO) 21.4 % (21-51); MEAN CORPUSCULAR HEMOGLOBIN 30.4 PG (27.0-31.0); MEAN CORPUSCULAR HGB CONC 33.8 g/dL (33.0-36.5); MEAN CORPUSCULAR VOLUME 89.9 FL (78-98); MEAN PLATELET VOLUME 7.9 FL (7.4-10.4); MONOCYTES # (AUTO) 0.8 X10'3 (0-0.9); MONOCYTES % (AUTO) 8.1 % (2-12); NEUTROPHILS # (AUTO) 6.8 X10'3 (1.8-7.7); NEUTROPHILS % (AUTO) 68.4 % (42-75); PLATELET COUNT 294 X10'3 (140-440); RED CELL DISTRIBUTION WIDTH 14.6 % (11.5-14.5)
[2024-02-19 22:50] LABS: ALBUMIN 3.3 G/DL (3.4-5.0); ANION GAP 6 (8-16); BLOOD UREA NITROGEN 14 MG/DL (7-18); BUN/CREATININE RATIO 15.1 (10.0-20.0); CALCIUM 8.9 MG/DL (8.5-10.1); CHLORIDE 105 MMOL/L (99-107); CREATININE 0.93 MG/DL (0.40-0.90); GLUCOSE 135 MG/DL (70-104); POTASSIUM 4.1 MMOL/L (3.5-5.1); SODIUM 140 MMOL/L (135-145); TOTAL CARBON DIOXIDE 29.3 MMOL/L (24-32); eCRCL 39 ML/MIN; eGFR 59 ML/MIN
[2024-02-19] MEDS: LORazepam 2 mg/ml vial IV ONE (23:27)
[2024-02-19] MEDS: normal saline 1000ml 1,000 ML IV ONE (23:27)
[2024-02-19] MEDS: meclizine 12.5mg tablet PO ONE (23:29)
[2024-02-19] MEDS: ondansetron/PF 4mg/2ml inj IV ONE (23:53)
[2024-02-19 23:57] VITALS: RESP 14
[2024-02-20 04:10] LABS: BILIRUBIN,URINE NEGATIVE (Neg); CLARITY,URINE SLIGHTLY CLOUDY (Clear); COLOR,URINE STRAW (Yellow); GLUCOSE, URINE NEGATIVE (Neg); KETONES,URINE NEGATIVE (Neg); LEUKOCYTE ESTERASE ,URINE SMALL (Neg); NITRITES, URINE NEGATIVE (Neg); OCCULT BLOOD,URINE TRACE-INTACT (Neg); PROTEIN,URINE NEGATIVE (Neg); UROBILINOGEN,URINE 0.2 E.U/dL (0.2-1.0)
[2024-02-20 04:21] LABS: UA COLLECTION TYPE NON-SPECIFIED
[2024-02-20] MEDS ORDERED: MECL-302 PO (04:34)
[2024-02-20 04:36] LABS: HYALINE CASTS 0-3 /LPF (NEGATIVE); SQUAMOUS EPITHELIAL CELL,UR FEW /LPF (FEW)
[2024-02-20 04:38] LABS: BACTERIA,URINE 2+ /HPF (Neg); RBC,URINE 0-2 /HPF (0-2)
== END 2024-02-20 05:04 | disposition home or self-care (01) ==
LOC: ER 21:58
DX: R42 Dizziness and giddiness (principal); R53.1 Weakness; H53.8 Other visual disturbances; Z88.8 Allergy status to other drugs, medicaments and biological substances; I10 Essential (primary) hypertension; J45.909 Unspecified asthma, uncomplicated; F31.9 Bipolar disorder, unspecified; F20.9 Schizophrenia, unspecified
CPT/HCPCS: 36415; 71045; 80048; 81001; 84484; 85025; 93005; 96361; 96374; 96375; 99285; J2060; J2405; J7030; J8597

== ENCOUNTER 2024-03-23 05:40 | Emergency (ER) | payer MEDICARE, MEDICAID ==
[~2024-03-23] VITALS: Ht 157.5 cm; Wt 185.0 kg
[~2024-03-23 05:40] MED LIST changes: +MECL-302 PO
[2024-03-23 05:42] VITALS: TEMP 98.1
[2024-03-23] MEDS: amLODIPine 5mg tablet PO ONE (06:07)
[2024-03-23] MEDS: hydrALAZINE 20mg/ml inj. IV ONE (06:10)
[2024-03-23 06:19] LABS: BASOPHILS # (AUTO) 0.1 X10'3 (0-0.2); BASOPHILS % (AUTO) 0.9 % (0-1); EOSINOPHILS # (AUTO) 0.2 X10'3 (0-0.9); HEMATOCRIT 39.5 % (35.0-45.0); HEMOGLOBIN 13.2 g/dl (12.0-16.0); LYMPHOCYTES # (AUTO) 2.1 X10'3 (1.1-4.8); LYMPHOCYTES % (AUTO) 23.6 % (21-51); MEAN CORPUSCULAR HEMOGLOBIN 30.2 PG (27.0-31.0); MEAN CORPUSCULAR HGB CONC 33.5 g/dL (33.0-36.5); MEAN CORPUSCULAR VOLUME 90.2 FL (78-98); MEAN PLATELET VOLUME 8.6 FL (7.4-10.4); MONOCYTES # (AUTO) 1.1 X10'3 (0-0.9); MONOCYTES % (AUTO) 12.7 % (2-12); NEUTROPHILS # (AUTO) 5.3 X10'3 (1.8-7.7); NEUTROPHILS % (AUTO) 60.8 % (42-75); PLATELET COUNT 285 X10'3 (140-440); RED BLOOD COUNT 4.38 X10'6 (4.20-5.60); RED CELL DISTRIBUTION WIDTH 14.4 % (11.5-14.5); WHITE BLOOD COUNT 8.7 X10'3 (4.5-11.0)
[2024-03-23 06:45] LABS: ALBUMIN 3.4 G/DL (3.4-5.0); ANION GAP 10 (8-16); BLOOD UREA NITROGEN 15 MG/DL (7-18); CALCIUM 8.6 MG/DL (8.5-10.1); CHLORIDE 104 MMOL/L (99-107); CREATININE 0.75 MG/DL (0.40-0.90); GLUCOSE 118 MG/DL (70-104); POTASSIUM 4.3 MMOL/L (3.5-5.1); PRO BRAIN NATRIURETIC PEPTIDE 94 PG/ML (0-125); SODIUM 140 MMOL/L (135-145); TOTAL CARBON DIOXIDE 25.6 MMOL/L (24-32); eCRCL 53 ML/MIN; eGFR 76 ML/MIN
[2024-03-23 07:15] VITALS: BP 150/79; PULSE 95; RESP 24; O2SAT 99
[2024-03-23 08:10] LABS: LIPASE 27 U/L (16-77)
[2024-03-23 08:26] LABS: ALANINE AMINOTRANSFERASE 15 U/L (12-78); ALBUMIN/GLOBULIN RATIO 0.9 (1.1-1.5); ALKALINE PHOSPHATASE 96 IU/L (46-116); ASPARTATE AMINO TRANSFERASE 10 U/L (10-37); BILIRUBIN,DIRECT 0.1 MG/DL (0-0.3); BILIRUBIN,TOTAL 0.5 MG/DL (0.1-1.0)
[2024-03-23 09:04] LABS: BILIRUBIN,URINE NEGATIVE (Neg); CLARITY,URINE CLEAR (Clear); COLOR,URINE STRAW (Yellow); GLUCOSE, URINE NEGATIVE (Neg); KETONES,URINE NEGATIVE (Neg); LEUKOCYTE ESTERASE ,URINE SMALL (Neg); NITRITES, URINE NEGATIVE (Neg); OCCULT BLOOD,URINE TRACE-INTACT (Neg); PROTEIN,URINE NEGATIVE (Neg); UROBILINOGEN,URINE 0.2 E.U/dL (0.2-1.0)
[2024-03-23 09:06] LABS: UA COLLECTION TYPE CLN CATCH MIDSTREAM
[2024-03-23 09:34] LABS: BACTERIA,URINE FEW /HPF (Neg); MUCUS STRANDS NONE SEEN /LPF (Neg); RBC,URINE 0-2 /HPF (0-2); SQUAMOUS EPITHELIAL CELL,UR FEW /LPF (FEW); TRANSITIONAL EPI CELLS,URINE FEW /HPF; WBC CLUMPS,URINE FEW /HPF (NEGATIVE)
== END 2024-03-23 10:23 | disposition home or self-care (01) ==
LOC: ER 05:41
DX: R07.2 Precordial pain (principal); R10.13 Epigastric pain; I10 Essential (primary) hypertension; J45.909 Unspecified asthma, uncomplicated; F20.9 Schizophrenia, unspecified; F31.9 Bipolar disorder, unspecified; Z88.8 Allergy status to other drugs, medicaments and biological substances
CPT/HCPCS: 36415; 71045; 76700; 80048; 80076; 81001; 83690; 83735; 83880; 84484; 85025; 93005; 96374; 99285; J0360

== ENCOUNTER 2024-03-27 22:14 | Emergency (ER) | payer MEDICARE, MEDICAID ==
[~2024-03-27] VITALS: Ht 157.5 cm; Wt 88.0 kg
[2024-03-27 23:15] LABS: BASOPHILS % (AUTO) 0.3 % (0-1); EOSINOPHILS # (AUTO) 0.1 X10'3 (0-0.9); EOSINOPHILS % (AUTO) 2.2 % (0-6); HEMATOCRIT 37.2 % (35.0-45.0); HEMOGLOBIN 12.6 g/dl (12.0-16.0); LYMPHOCYTES # (AUTO) 1.7 X10'3 (1.1-4.8); LYMPHOCYTES % (AUTO) 24.8 % (21-51); MEAN CORPUSCULAR HEMOGLOBIN 30.6 PG (27.0-31.0); MEAN CORPUSCULAR HGB CONC 33.8 g/dL (33.0-36.5); MEAN CORPUSCULAR VOLUME 90.6 FL (78-98); MEAN PLATELET VOLUME 8.1 FL (7.4-10.4); MONOCYTES # (AUTO) 0.9 X10'3 (0-0.9); MONOCYTES % (AUTO) 13.6 % (2-12); NEUTROPHILS % (AUTO) 59.1 % (42-75); PLATELET COUNT 270 X10'3 (140-440); RED BLOOD COUNT 4.11 X10'6 (4.20-5.60); RED CELL DISTRIBUTION WIDTH 14.3 % (11.5-14.5); WHITE BLOOD COUNT 6.8 X10'3 (4.5-11.0)
[2024-03-27 23:26] LABS: BILIRUBIN,URINE NEGATIVE (Neg); CLARITY,URINE SLIGHTLY CLOUDY (Clear); COLOR,URINE STRAW (Yellow); GLUCOSE, URINE NEGATIVE (Neg); KETONES,URINE NEGATIVE (Neg); LEUKOCYTE ESTERASE ,URINE MODERATE (Neg); NITRITES, URINE NEGATIVE (Neg); OCCULT BLOOD,URINE NEGATIVE (Neg); PH,URINE 8.5 (4.8-8.0); PROTEIN,URINE NEGATIVE (Neg); UROBILINOGEN,URINE 0.2 E.U/dL (0.2-1.0)
[2024-03-27 23:29] LABS: UA COLLECTION TYPE CLN CATCH MIDSTREAM
[2024-03-27 23:32] LABS: BACTERIA,URINE FEW /HPF (Neg); SQUAMOUS EPITHELIAL CELL,UR FEW /LPF (FEW)
[2024-03-27 23:33] LABS: AMORPHOUS PHOSPHATES 1+; TRANSITIONAL EPI CELLS,URINE FEW /HPF
[2024-03-27 23:33] LABS: ALANINE AMINOTRANSFERASE 16 U/L (12-78); ALBUMIN 3.1 G/DL (3.4-5.0); ALBUMIN/GLOBULIN RATIO 0.9 (1.1-1.5); ALKALINE PHOSPHATASE 82 IU/L (46-116); ANION GAP 7 (8-16); ASPARTATE AMINO TRANSFERASE 15 U/L (10-37); BILIRUBIN,TOTAL 0.2 MG/DL (0.1-1.0); BLOOD UREA NITROGEN 12 MG/DL (7-18); BUN/CREATININE RATIO 16.7 (10.0-20.0); CALCIUM 7.7 MG/DL (8.5-10.1); CHLORIDE 105 MMOL/L (99-107); CREATININE 0.72 MG/DL (0.40-0.90); GLUCOSE 92 MG/DL (70-104); LIPASE 25 U/L (16-77); POTASSIUM 3.4 MMOL/L (3.5-5.1); SODIUM 146 MMOL/L (135-145); TOTAL CARBON DIOXIDE 33.7 MMOL/L (24-32); TOTAL PROTEIN 6.4 G/DL (6.4-8.2); eCRCL 55 ML/MIN; eGFR 79 ML/MIN
[2024-03-28] MEDS: ketorolac tromethamine 15mg/ml inj. IV ONE (01:23)
[2024-03-28] MEDS: potassium Cl 20 mEq SR tablet PO STA (01:23)
[2024-03-28] MEDS: ondansetron/PF 4mg/2ml inj IV ONE (01:23)
[2024-03-28] MEDS: normal saline 1000ml 1,000 ML IV ONE (01:23)
[2024-03-28] MEDS: ketorolac trometh. 30mg/ml inj. IV ONE (01:24)
[2024-03-28 02:19] VITALS: BP 158/74; PULSE 68; RESP 15; O2SAT 96
[2024-03-28] MEDS ORDERED: ROSU10TA2 PO (09:54)
[2024-03-28] MEDS ORDERED: BENZ1TAB93 PO (09:54)
[2024-03-28] MEDS ORDERED: PANT40TA54 PO (09:54)
[2024-03-28] MEDS ORDERED: FLUO-81 PO (09:54)
== END 2024-03-28 02:16 ==
LOC: ER 22:15
DX: R10.31 Right lower quadrant pain (principal); R10.32 Left lower quadrant pain; Z88.8 Allergy status to other drugs, medicaments and biological substances; I10 Essential (primary) hypertension; J45.909 Unspecified asthma, uncomplicated; F20.9 Schizophrenia, unspecified; F31.9 Bipolar disorder, unspecified
CPT/HCPCS: 36415; 74176; 80053; 81001; 83690; 84484; 85025; 87088; 93005; 96361; 96374; 96375; 99285; J1885; J2405; J7030

== ENCOUNTER 2024-03-28 05:05 | Inpatient (IN) | payer MEDICARE, MEDICAID ==
[~2024-03-28] VITALS: Ht 149.9 cm; Wt 85.1 kg
[2024-03-28] MEDS: CefTRIAXone 2gm/D5W 50ml BAG 50 ML IV ONE (05:57)
[2024-03-28 06:00] LABS: BASOPHILS # (AUTO) 0.1 X10'3 (0-0.2); EOSINOPHILS # (AUTO) 0.1 X10'3 (0-0.9); EOSINOPHILS % (AUTO) 2.1 % (0-6); HEMATOCRIT 37.5 % (35.0-45.0); HEMOGLOBIN 12.4 g/dl (12.0-16.0); LYMPHOCYTES # (AUTO) 1.6 X10'3 (1.1-4.8); LYMPHOCYTES % (AUTO) 24.1 % (21-51); MEAN CORPUSCULAR HEMOGLOBIN 30.1 PG (27.0-31.0); MEAN CORPUSCULAR HGB CONC 33.1 g/dL (33.0-36.5); MEAN PLATELET VOLUME 8.1 FL (7.4-10.4); MONOCYTES % (AUTO) 14.8 % (2-12); NEUTROPHILS # (AUTO) 3.9 X10'3 (1.8-7.7); PLATELET COUNT 244 X10'3 (140-440); RED BLOOD COUNT 4.13 X10'6 (4.20-5.60); RED CELL DISTRIBUTION WIDTH 14.5 % (11.5-14.5); WHITE BLOOD COUNT 6.7 X10'3 (4.5-11.0)
[2024-03-28 06:23] LABS: ALBUMIN 3.1 G/DL (3.4-5.0); ANION GAP 3 (8-16); BLOOD UREA NITROGEN 9 MG/DL (7-18); BUN/CREATININE RATIO 14.8 (10.0-20.0); CALCIUM 7.9 MG/DL (8.5-10.1); CHLORIDE 108 MMOL/L (99-107); CREATININE 0.61 MG/DL (0.40-0.90); ETHANOL < 10 MG/DL (<10); GLUCOSE 95 MG/DL (70-104); POTASSIUM 3.5 MMOL/L (3.5-5.1); SODIUM 144 MMOL/L (135-145); THYROID STIMULATING HORMONE 2.23 ulU/ml (0.34-4.50); eCRCL 59 ML/MIN; eGFR > 90 ML/MIN
[2024-03-28] MEDS ORDERED: ROSU10TA2 PO (09:54)
[2024-03-28] MEDS ORDERED: PANT40TA54 PO (09:54)
[2024-03-28] MEDS ORDERED: BENZ1TAB93 PO (09:54)
[2024-03-28] MEDS ORDERED: FLUO-81 PO (09:54)
[2024-03-28] MEDS: LORazepam 1 MG tablet PO ONE (10:50)
[2024-03-28] MEDS ORDERED: nitrofurantoin macrocrystal 50mg capsule PO SCH ×2 (12:30→20:00)
[2024-03-28] MEDS: nitrofurantoin macrocrystal 50mg capsule PO ONE (12:57)
[2024-03-28 15:01] LABS: LITHIUM 0.5 MMOL/L (0.8-1.2)
[2024-03-28 17:58] LABS: URINE AMPHETAMINE SCREEN NEGATIVE (Neg); URINE BARBITUATE SCREEN NEGATIVE (Neg); URINE BENZODIAZEPINES SCREEN NEGATIVE (Neg); URINE CANNABINOID SCREEN NEGATIVE (Neg); URINE COCAINE SCREEN NEGATIVE (Neg); URINE METHADONE SCREEN NEGATIVE (Neg); URINE OPIATE SCREEN NEGATIVE (Neg); URINE PHENCYCLIDINE SCREEN NEGATIVE (Neg)
[2024-03-28] MEDS: nitrofuran monohydrate/nitrofuran macrocrysal 100 MG (MacroBID) capsule PO SCH (19:12)
[2024-03-28] MEDS: divalproex sod 250mg ER (24-hour) tablet PO SCH (19:13)
[2024-03-28] MEDS: OLANZapine 5mg rapidly disint. tablet PO SCH (21:11)
[2024-03-28] MEDS: traZODone 50mg tablet PO SCH (21:12)
[2024-03-28] MEDS: lithium carbonate 150mg capsule PO SCH (21:12)
[2024-03-29] MEDS ORDERED: non-formulary drug (Lansoprazole 1 CAP) PO SCH (08:00)
[2024-03-29] MEDS: atorvastatin 20mg tablet PO SCH (08:53)
[2024-03-29] MEDS: pantoprazole 40mg Tablet.DR PO SCH (08:54)
[2024-03-29] MEDS: FLUoxetine 10mg capsule PO SCH (08:54)
[2024-03-29] MEDS ORDERED: loperamide 2mg capsule PO PRN (14:25)
[2024-03-29] MEDS ORDERED: acetaminophen 325mg tablet PO PRN (14:25)
[2024-03-29] MEDS ORDERED: mag hydrox/Alum hydrox/simeth 30ml oral suspension PO PRN (14:25)
[2024-03-29 15:36] VITALS: BP 137/69; PULSE 85; RESP 18; TEMP 97.7; O2SAT 97
[2024-03-29 16:42] VITALS: RESP 18; O2SAT 97
[2024-03-29 19:00] VITALS: RESP 18; O2SAT 97
[2024-03-29 20:00] VITALS: BP 132/94; PULSE 80; RESP 18; TEMP 97; O2SAT 97
[2024-03-29] MEDS: nystatin 15 GM powder TP SCH (20:00)
[2024-03-30 07:10] VITALS: RESP 16; O2SAT 99
[2024-03-30 08:00] VITALS: BP 150/78; PULSE 78; RESP 16; TEMP 97.2; O2SAT 99
[2024-03-30 09:38] LABS: HEMOGLOBIN A1C 5.8 % (4.5-6.2)
[2024-03-30 09:52] LABS: CHOL/HDL RATIO 2.2 (0.00-4.99); CHOLESTEROL 105 MG/DL (0-200); HDL CHOLESTEROL 48 MG/DL (35-60); LDL CHOLESTEROL 44 MG/DL (50-100); TRIGLYCERIDES 86 MG/DL (20-135)
[2024-03-30 19:30] VITALS: BP 170/98; PULSE 89; RESP 15; TEMP 97.1; O2SAT 98
[2024-03-30] MEDS: cloNIDine 0.1 mg tablet PO ONE (20:04)
[2024-03-30] MEDS: magnesium hydroxide 30ml (MOM) UD suspension PO PRN (20:06)
[2024-03-30 21:04] VITALS: BP 130/58; PULSE 87
[2024-03-31 07:35] VITALS: RESP 16; O2SAT 96
[2024-03-31 08:12] VITALS: BP 116/65; PULSE 86; RESP 16; TEMP 97.2; O2SAT 96
[2024-03-31 19:30] VITALS: BP 129/78; PULSE 82; RESP 20; TEMP 98.2; O2SAT 100
[2024-03-31] MEDS: acetaminophen 325mg tablet PO PRN (21:03)
[2024-04-01 07:00] VITALS: RESP 15; O2SAT 95
[2024-04-01 07:30] VITALS: BP 126/52; PULSE 80; RESP 15; TEMP 97.2; O2SAT 95
[2024-04-01 19:37] VITALS: BP 154/61; PULSE 82; RESP 20; TEMP 97.6; O2SAT 100
[2024-04-01] MEDS: docusate sod 100mg capsule PO PRN (21:04)
[2024-04-01] MEDS: atorvastatin 20mg tablet PO SCH (21:04)
[2024-04-02 07:30] VITALS: BP 160/93; PULSE 105; RESP 18; TEMP 96.6; O2SAT 99
[2024-04-02] MEDS: lactobacillus rhamnosus 10,000 MMU CELLS/CAPSULE PO SCH (08:36)
[2024-04-02 19:49] VITALS: BP 115/50; PULSE 80; RESP 15; TEMP 97.1; O2SAT 98
[2024-04-03] MEDS: polyvinyl alcohol eye drops 15ML BOTTLE EACHEYE PRN (07:17)
[2024-04-03 07:30] VITALS: BP 160/79; PULSE 82; RESP 14; TEMP 98.3; O2SAT 94
[2024-04-03 19:53] VITALS: BP 144/75; PULSE 98; RESP 14; TEMP 97.2; O2SAT 98
[2024-04-04 07:00] VITALS: RESP 16; O2SAT 96
[2024-04-04 08:00] VITALS: BP 148/85; PULSE 102; RESP 16; TEMP 97.2; O2SAT 96
[2024-04-04] MEDS: HALLS - SOOTHE MENTHOL 1.8 MG cough drop LOZENGE MM PRN (15:08)
[2024-04-04] MEDS: DICLOFENAC SODIUM 1% gel 1 APPLIC APPLIC TP PRN (15:08)
[2024-04-04 19:00] VITALS: BP 135/84; PULSE 90; RESP 16; TEMP 97.8; O2SAT 98
[2024-04-05 07:00] VITALS: BP 159/77; PULSE 98; RESP 17; TEMP 97; O2SAT 95
[2024-04-05] MEDS: lisinopril 5mg tablet PO ONE (18:12)
[2024-04-05 20:00] VITALS: RESP 14
[2024-04-06 08:00] VITALS: BP 109/61; PULSE 81; RESP 20; TEMP 98.2; O2SAT 92
[2024-04-06 08:50] LABS: BASOPHILS % (AUTO) 0.5 % (0-1); EOSINOPHILS # (AUTO) 0.2 X10'3 (0-0.9); EOSINOPHILS % (AUTO) 3.1 % (0-6); HEMATOCRIT 39.8 % (35.0-45.0); HEMOGLOBIN 12.9 g/dl (12.0-16.0); LYMPHOCYTES # (AUTO) 1.4 X10'3 (1.1-4.8); LYMPHOCYTES % (AUTO) 28.2 % (21-51); MEAN CORPUSCULAR HEMOGLOBIN 29.9 PG (27.0-31.0); MEAN CORPUSCULAR HGB CONC 32.5 g/dL (33.0-36.5); MEAN CORPUSCULAR VOLUME 92.1 FL (78-98); MEAN PLATELET VOLUME 8.8 FL (7.4-10.4); MONOCYTES # (AUTO) 0.5 X10'3 (0-0.9); MONOCYTES % (AUTO) 8.9 % (2-12); NEUTROPHILS % (AUTO) 59.3 % (42-75); PLATELET COUNT 278 X10'3 (140-440); RED BLOOD COUNT 4.32 X10'6 (4.20-5.60); WHITE BLOOD COUNT 5.1 X10'3 (4.5-11.0)
[2024-04-06] MEDS: lisinopril 5mg tablet PO SCH (08:59)
[2024-04-06 09:03] LABS: ALANINE AMINOTRANSFERASE 23 U/L (12-78); ALBUMIN 3.3 G/DL (3.4-5.0); ALKALINE PHOSPHATASE 97 IU/L (46-116); ANION GAP 4 (8-16); ASPARTATE AMINO TRANSFERASE 12 U/L (10-37); BILIRUBIN,TOTAL 0.4 MG/DL (0.1-1.0); BLOOD UREA NITROGEN 22 MG/DL (7-18); BUN/CREATININE RATIO 28.2 (10.0-20.0); CALCIUM 8.6 MG/DL (8.5-10.1); CHLORIDE 105 MMOL/L (99-107); CREATININE 0.78 MG/DL (0.40-0.90); GLUCOSE 124 MG/DL (70-104); POTASSIUM 4.4 MMOL/L (3.5-5.1); SODIUM 140 MMOL/L (135-145); TOTAL CARBON DIOXIDE 30.6 MMOL/L (24-32); TOTAL PROTEIN 6.6 G/DL (6.4-8.2); eCRCL 44 ML/MIN; eGFR 72 ML/MIN
[2024-04-06 19:00] VITALS: RESP 16; O2SAT 97
[2024-04-06 19:30] VITALS: BP 137/66; PULSE 94; RESP 16; TEMP 97.2; O2SAT 97
[2024-04-07 07:09] VITALS: BP 112/64; PULSE 97; RESP 16; TEMP 97.5; O2SAT 95
[2024-04-07 19:30] VITALS: BP 109/67; PULSE 94; RESP 22; TEMP 98.3; O2SAT 98
[2024-04-07] MEDS: LORazepam 1 MG tablet PO ONE (23:32)
[2024-04-08 07:30] VITALS: BP 151/82; PULSE 111; RESP 20; TEMP 97.3; O2SAT 95
[2024-04-08 07:50] VITALS: RESP 20
[2024-04-08 20:37] VITALS: BP 126/58; PULSE 90; RESP 20; TEMP 97.6; O2SAT 95
[2024-04-09 07:00] VITALS: RESP 16; O2SAT 96
[2024-04-09 08:00] VITALS: BP 130/65; PULSE 104; RESP 16; TEMP 97.4; O2SAT 96
[2024-04-09 08:22] VITALS: BP_SYST 130; PULSE 104
[2024-04-09] MEDS ORDERED: DIVA250T8 PO (12:09)
[2024-04-09] MEDS ORDERED: ATOR20TA66 PO (12:09)
[2024-04-09] MEDS ORDERED: DICL20GE TP (12:09)
[2024-04-09] MEDS ORDERED: DOCU100C40 PO (12:09)
[2024-04-09] MEDS ORDERED: OLAN10TA21 PO (12:09)
[2024-04-09] MEDS ORDERED: PROZ10C PO (12:09)
[2024-04-09] MEDS ORDERED: LISI5TAB22 PO (12:09)
[2024-04-09] MEDS ORDERED: PANT40TA54 PO (12:09)
[2024-04-09] MEDS ORDERED: TRAZ-256 PO (12:09)
== END 2024-04-09 14:35 | disposition home or self-care (01) | DRG 885 ==
LOC: ER 05:06 → ED HOLD 03-29 13:05 → ADULT MH 03-29 14:16
PROVIDERS: ADMIT Psychiatry & Neurology Psychiatry; ATTEND Psychiatry & Neurology Psychiatry
PROC: GZHZZZZ Group Psychotherapy (ICD-10-PCS; principal; 2024-03-31)
PROC: GZ51ZZZ Individual Psychotherapy, Behavioral (ICD-10-PCS; 2024-04-01)
DX: F31.9 Bipolar disorder, unspecified (principal); N39.0 Urinary tract infection, site not specified; F03.B2 Unspecified dementia, moderate, with psychotic disturbance; Z20.822 Contact with and (suspected) exposure to COVID-19; J45.909 Unspecified asthma, uncomplicated; F20.9 Schizophrenia, unspecified; K21.9 Gastro-esophageal reflux disease without esophagitis; E78.00 Pure hypercholesterolemia, unspecified; B36.8 Other specified superficial mycoses; G89.29 Other chronic pain; M54.2 Cervicalgia; F29 Unspecified psychosis not due to a substance or known physiological condition; I10 Essential (primary) hypertension; Z88.8 Allergy status to other drugs, medicaments and biological substances; Z79.899 Other long term (current) drug therapy; Z81.8 Family history of other mental and behavioral disorders; Z98.891 History of uterine scar from previous surgery
CPT/HCPCS: 36415; 80048; 80053; 80061; 80164; 80178; 80305; 80320; 83036; 84443; 85025; 87081; 87811; 93005; 99285; J0696; J7030

== ENCOUNTER 2025-04-24 10:13 | Emergency (ER) | payer MEDICARE, MEDICAID ==
[~2025-04-24] VITALS: Ht 152.4 cm; Wt 68.2 kg
[~2025-04-24 10:13] MED LIST changes: +ATOR20TA66 PO; -BENZ1TAB78 PO; +DICL20GE TP; -DIVA-81 PO; +DIVA250T8 PO; +DOCU100C40 PO; +FLUO-331 PO; -FLUP1TAB PO; -GLYC-23 RC; -HYDR12.55 PO; -LACT10SO3 PO; -LANS30CA56 PO; +LISI5TAB22 PO; -LITH150C8 PO; -MECL-302 PO; +OLAN10TA21 PO; -OLAN5TAB5 PO; +PANT40TA54 PO; -POTA-192 PO
[2025-04-24] MEDS: ziprasidone IM 20mg inj **IM only IM ONE (10:41)
[2025-04-24] MEDS: LORazepam 1 MG tablet PO ONE (10:42)
[2025-04-24 11:46] LABS: BASOPHILS % (AUTO) 0.4 % (0-1); EOSINOPHILS % (AUTO) 0.1 % (0-6); HEMOGLOBIN 13.5 g/dl (12.0-16.0); LYMPHOCYTES # (AUTO) 1.6 X10'3 (1.1-4.8); LYMPHOCYTES % (AUTO) 15.2 % (21-51); MEAN CORPUSCULAR HEMOGLOBIN 30.4 PG (27.0-31.0); MEAN CORPUSCULAR HGB CONC 33.8 g/dL (33.0-36.5); MEAN CORPUSCULAR VOLUME 89.9 FL (78-98); MEAN PLATELET VOLUME 8.9 FL (7.4-10.4); MONOCYTES # (AUTO) 0.9 X10'3 (0-0.9); NEUTROPHILS # (AUTO) 7.9 X10'3 (1.8-7.7); NEUTROPHILS % (AUTO) 75.3 % (42-75); PLATELET COUNT 337 X10'3 (140-440); RED BLOOD COUNT 4.45 X10'6 (4.20-5.60); RED CELL DISTRIBUTION WIDTH 14.5 % (11.5-14.5); WHITE BLOOD COUNT 10.5 X10'3 (4.5-11.0)
[2025-04-24 12:12] LABS: ALBUMIN 3.9 G/DL (3.4-5.0); ANION GAP 15 (8-16); BLOOD UREA NITROGEN 35 MG/DL (7-18); BUN/CREATININE RATIO 49.3 (10.0-20.0); CALCIUM 9.4 MG/DL (8.5-10.1); CHLORIDE 105 MMOL/L (99-107); CREATININE 0.71 MG/DL (0.40-0.90); ETHANOL < 10 MG/DL (<10); GLUCOSE 115 MG/DL (70-104); POTASSIUM 3.6 MMOL/L (3.5-5.1); SODIUM 143 MMOL/L (135-145); eCRCL 50 ML/MIN; eGFR 80 ML/MIN
[2025-04-24] MEDS ORDERED: NO HOME MEDS (17:06)
--- NOTE | 2025-04-24 18:08 | Physician Documentation ---
History of Present Illness ~ Chief Complaint: Mental Health Eval Stated Complaint: HALLUCINATIONS Time Seen by MD: 10:16 OK to notify your PCP?: Yes Primary Medical Doctor: RADHA Source: patient, RN/MD, EMS, RN notes reviewed, EMS notes reviewed, old records Mode of Arrival: EMS Exam Limitations: no limitations HPI Patient was brought to the hospital by EMS for behavioral health evaluation. She was walking in the street in front of her house and she was hallucinating. She has a history of bipolar she has not been taking her medications. Medication Reconciliation Allergies: Coded Allergies: codeine (Verified Allergy, Intermediate, 04/24/25) benztropine (Verified Allergy, Unknown, 04/24/25) bupropion (Verified Allergy, Unknown, 04/24/25) makes eyes flutter. haloperidol (Verified Allergy, Unknown, 04/24/25) lockjaw Scheduled Benztropine Mesylate (Benztropine Mesylate), 1 TAB PO BID, (Reported) Divalproex Sodium ER* (Depakote ER*), 1 TAB PO BID, (Reported) Fluphenazine HCl (Fluphenazine HCl), 1 TAB PO DAILY, (Reported) Fluphenazine HCl (Fluphenazine HCl), 2 TAB PO HS, (Reported) [place] Carbonate (LITHIUM CARBONATE capsule), 2 CAP PO HS, (Reported) Olanzapine (Zyprexa), 1 TAB PO HS, (Reported) Discontinued Medications Atorvastatin Calcium (Atorvastatin Calcium), 20 MG PO HS Discontinued Reason: patient no longer taking Diclofenac Sodium (Voltaren Arthritis Pain), 1 APPLIC TP BID PRN for joint pain Discontinued Reason: patient no longer taking Divalproex Sodium (Divalproex Sodium Er), 250 MG PO BID Discontinued Reason: patient no longer taking Docusate Sodium (Docusate Sodium), 100 MG PO BID PRN for constipation Discontinued Reason: patient no longer taking Fluoxetine HCl (Fluoxetine HCl), 10 MG PO DAILY Discontinued Reason: patient no longer taking Fluoxetine Hcl (Fluoxetine Hcl), 1 CAP PO DAILY, (Reported) Discontinued Reason: Pt. condition changed Home Med List (No Home Medications), (Reported) Discontinued Reason: completed med therapy Lisinopril (Lisinopril), 5 MG PO DAILY Discontinued Reason: patient no longer taking [place] Carbonate (LITHIUM CARBONATE capsule), 2 CAP PO DAILY, (Reported) Discontinued Reason: patient no longer taking Olanzapine (Olanzapine), 1 TAB PO HS Discontinued Reason: patient no longer taking Pantoprazole Sodium (Pantoprazole Sodium), 40 MG PO DAILY Discontinued Reason: patient no longer taking Propranolol Hcl* (Inderal*), 1 TAB PO PRN, (Reported) Discontinued Reason: Pt. condition changed Trazodone HCl (Trazodone HCl), 1 TAB PO HS Discontinued Reason: patient no longer taking Past Medical History Past Medical History: *CARDIOVASCULAR*, Hypertension, Asthma, Bipolar, Schizophrenia Past Surgical History: , orthopedic surgeries, other Patient History: FH: cancer FATHER FH: depression MOTHER FH: heart attack FATHER Alcohol Use: None Drug Use: none Lives In: Home Review of Systems All Other Systems at this time: Reviewed and Negative ROS As stated above in the HPI, otherwise all systems are reviewed and negative. Physical Exam Vital Signs: RN Vital Signs have been reviewed: Yes, Temperature: 97.7, Source: Oral, Heart Rate: 109, Respiratory Rate: 19, BP: 182/105, Pulse Oximetry: 97, Weight: 68.180 Oxygen Flow Rate: 0 Physical Exam General: Awake and Alert, no acute distress. HEENT: Conjunctiva pink, Sclera clear, Mucus Membranes moist. Neck: Supple without masses and tenderness. Resp: Unlabored. Lungs clear to auscultation bilaterally. Heart: Regular Rate and rhythm, normal S1 and S2 without murmur, rub or gallop. Abdomen: Soft and non tender no organomegaly Extremities: No cyanosis,clubbing or edema. Skin: Warm and Dry. Neuro: GCS 15; no focal deficits Psych: Easily agitated delusional. Progress Progress Note Patient was evaluated by mental treva and evaluated for a safe discharge from the emergency room. Results/Orders Reviewed/noted all lab results: Yes Results/Orders Orders - MISAEL MAYA MD Crowning Hammer Operator (04/25/25 11:35) Vital Signs 04/24/25 04/24/25 04/24/25 04/24/25 10:23 10:30 10:30 18:49 Temp 97.7 97.7 Pulse 109 109 Resp 16 19 19 20 B/P (MAP) 171/96 182/105 (130) Pulse Ox 96 97 O2 Flow Rate 0 04/24/25 04/25/25 04/25/25 04/25/25 18:50 05:57 11:00 11:11 Temp 98.3 Pulse 101 92 82 Resp 18 18 18 B/P (MAP) 162/76 (104) 156/80 (105) 139/76 (97) Pulse Ox 98 99 95 O2 Flow Rate 0 0 0 04/25/25 04/25/25 04/26/25 04/26/25 19:00 20:00 05:11 06:41 Temp 96.8 97.1 Pulse 91 77 Resp 20 20 20 B/P (MAP) 169/85 (113) 142/67 (92) Pulse Ox 98 98 O2 Flow Rate 0 04/26/25 04/26/25 04/27/25 04/27/25 16:47 18:45 05:40 08:05 Temp 98.2 97.8 Pulse 87 91 Resp 15 14 18 16 B/P (MAP) 164/91 (115) 133/72 (92) Pulse Ox 99 96 Laboratory Tests Test 04/24/25 11:27 04/24/25 22:30 04/25/25 13:15 White Blood Count 10.5 Red Blood Count 4.45 Hemoglobin 13.5 Hematocrit 40.0 Mean Corpuscular Volume 89.9 Mean Corpuscular Hemoglobin 30.4 Mean Corpuscular Hemoglobin Concent 33.8 Red Cell Distribution Width 14.5 Platelet Count 337 Mean Platelet Volume 8.9 Neutrophils (%) (Auto) 75.3 H Lymphocytes (%) (Auto) 15.2 L Monocytes (%) (Auto) 9.0 Eosinophils (%) (Auto) 0.1 Basophils (%) (Auto) 0.4 Neutrophils # (Auto) 7.9 H Lymphocytes # (Auto) 1.6 Monocytes # (Auto) 0.9 Eosinophils # (Auto) 0.0 Basophils # (Auto) 0.0 CBC Comment Sodium Level 143 Potassium Level 3.6 Chloride Level 105 Carbon Dioxide Level 23.0 L Anion Gap 15 Blood Urea Nitrogen 35 H Creatinine 0.71 Estimated GFR/1.73 m2 80 BUN/Creatinine Ratio 49.3 H Glucose Level 115 H Calcium Level 9.4 Albumin 3.9 Thyroid Stimulating Hormone (TSH) 1.80 Chemistry Comments [place] Level < 0.2 L Ethyl Alcohol Level < 10 SARS-CoV-2 Antigen (Rapid) Negative Urine Specimen Description Non-specified Urine Color Yellow Urine Clarity Clear Urine pH 5.5 Urine Specific [place] >=1.030 Urine Protein Negative Urine Glucose (UA) >=1000 H Urine Ketones Negative Urine Occult Blood Negative Urine Nitrite Negative Urine Bilirubin Negative Urine Urobilinogen 0.2 Urine Leukocyte Esterase Negative Urine RBC None seen Urine WBC None seen Urine Squamous Epithelial Cells None seen Urine Bacteria None seen Volume Urine Centrifuged 10 ml Urine Comment Urine Opiates Screen Negative Urine Methadone Screen Negative Urine Fentanyl Screen Negative Urine Barbiturates Screen Negative Urine Phencyclidine Screen Negative Urine Amphetamines Screen Negative Urine Benzodiazepines Screen Negative Urine Cocaine Screen Negative Urine Cannabinoids Screen Negative Drug Screen Comment Medical Decision Making Findings Patient is here for behavioral health evaluation. She has been hallucinating. She was walking in the street he was unsafe she was placed on a hold. Signed out to oncoming provider. Labs reassuring she is medically cleared for mental health evaluation Differential Dx:Considerations: Include: Alcohol abuse, Anxiety, Bipolar disorder, Conversion disorder, Depression, Encephaloathy, Personality disorder, Other Departure Time of Disposition: 10:54 Disposition: 01 HOME / SELF CARE / HOMELESS Impression: Primary Impression: Dementia Additional Impression: Depression Condition: Stable Discharge Instructions: Dementia, [id number] Referrals: NO PRIMARY CARE PROVIDER (PCP) Education Educated: Patient Educated regarding: diagnosis, treatment Signature Scribe Signature: Scribed for Misael Maya MD by Adria Alicea . 04/25/25 10:54 Attestation: The note accurately reflects work and decisions made by me.Jacinto Miller MD 04/25/25 19:24 Addendum Patient was set up and put in touch with home health by her case management social worker. Patient is off her hold at this time. Patients daughter will be here between 1-2pm tomorrow to retrieve the patient and home health will reach out to the patient on 04/29/2025. MAEGAN DENNEY MD Apr 24, 2025 18:08 ADRIA FLEMING Apr 25, 2025 10:54 JACINTO MILLER MD Apr 25, 2025 19:24 MISAEL MAYA MD Apr 28, 2025 23:47
[2025-04-24] MEDS: normal saline 1000ml 1,000 ML IV ONE (22:45)
[2025-04-25] MEDS ORDERED: PROP10TA10 PO (02:35)
[2025-04-25] MEDS ORDERED: LITH150C8 PO ×2 (02:35→21:05)
[2025-04-25] MEDS ORDERED: BENZ1TAB78 PO (02:35)
[2025-04-25] MEDS ORDERED: FLUO-103 PO (02:35)
[2025-04-25] MEDS: OLANZapine **IM** 10 mg inj. IM ONE (03:15)
[2025-04-25] MEDS: MIDAZolam 5mg/ml 2ml vial IM ONE (04:44)
[2025-04-25 18:00] LABS: BILIRUBIN,URINE NEGATIVE (Neg); CLARITY,URINE CLEAR (Clear); COLOR,URINE YELLOW (Yellow); GLUCOSE, URINE >=1000 mg/dl (Neg); KETONES,URINE NEGATIVE (Neg); LEUKOCYTE ESTERASE ,URINE NEGATIVE (Neg); NITRITES, URINE NEGATIVE (Neg); OCCULT BLOOD,URINE NEGATIVE (Neg); PH,URINE 5.5 (4.8-8.0); PROTEIN,URINE NEGATIVE (Neg); UROBILINOGEN,URINE 0.2 E.U/dL (0.2-1.0)
[2025-04-25 18:11] LABS: UA COLLECTION TYPE NON-SPECIFIED
[2025-04-25 18:17] LABS: URINE AMPHETAMINE SCREEN NEGATIVE (Neg); URINE BARBITUATE SCREEN NEGATIVE (Neg); URINE BENZODIAZEPINES SCREEN NEGATIVE (Neg); URINE CANNABINOID SCREEN NEGATIVE (Neg); URINE COCAINE SCREEN NEGATIVE (Neg); URINE METHADONE SCREEN NEGATIVE (Neg); URINE OPIATE SCREEN NEGATIVE (Neg); URINE PHENCYCLIDINE SCREEN NEGATIVE (Neg)
[2025-04-25 18:27] LABS: WBC,URINE NONE SEEN /HPF (0-4)
[2025-04-25 18:28] LABS: BACTERIA,URINE NONE SEEN /HPF (Neg); RBC,URINE NONE SEEN /HPF (0-2)
[2025-04-25 18:30] LABS: SQUAMOUS EPITHELIAL CELL,UR NONE SEEN /LPF (FEW)
[2025-04-25] MEDS: acetaminophen 325mg tablet PO ONE (20:09)
[2025-04-25] MEDS ORDERED: DIVA-81 PO (21:05)
[2025-04-25] MEDS ORDERED: OLAN7.5T3 PO (21:05)
[2025-04-25] MEDS ORDERED: FLUP1TAB PO ×2 (21:05)
[2025-04-25] MEDS: lithium carbonate 150mg capsule PO SCH (21:47)
[2025-04-25] MEDS ORDERED: benztropine 1mg tablet PO SCH (21:51)
[2025-04-25] MEDS: divalproex sod 250mg ER (24-hour) tablet PO SCH (21:55)
[2025-04-25] MEDS: OLANZapine 2.5MG tablet PO SCH (21:58)
[2025-04-27 05:40] VITALS: BP 133/72; PULSE 91; TEMP 97.8; O2SAT 96
[2025-04-27 08:05] VITALS: RESP 16
== END 2025-04-27 14:45 | disposition home or self-care (01) ==
LOC: ER 10:13
DX: F25.1 Schizoaffective disorder, depressive type (principal); F02.C3 Dementia in other diseases classified elsewhere, severe, with mood disturbance; F31.9 Bipolar disorder, unspecified; I10 Essential (primary) hypertension; J45.909 Unspecified asthma, uncomplicated; Z20.822 Contact with and (suspected) exposure to COVID-19; Z88.5 Allergy status to narcotic agent; Z88.8 Allergy status to other drugs, medicaments and biological substances; Z79.899 Other long term (current) drug therapy
CPT/HCPCS: 36415; 80048; 80178; 80305; 81001; 84443; 85025; 87811; 96372; 99285; G0480; J2250; J3490; 80320; J3486

== ENCOUNTER 2025-04-30 10:32 | Inpatient (IN) | payer MEDICARE, MEDICAID ==
[~2025-04-30] VITALS: Ht 162.6 cm; Wt 86.0 kg
[~2025-04-30 10:32] MED LIST changes: -ATOR20TA66 PO; +BENZ1TAB78 PO; -DICL20GE TP; +DIVA-81 PO; -DIVA250T8 PO; -DOCU100C40 PO; -FLUO-331 PO; +FLUP1TAB PO; -LISI5TAB22 PO; +LITH150C8 PO; -OLAN10TA21 PO; +OLAN7.5T3 PO; -PANT40TA54 PO; -TRAZ-256 PO
[2025-04-30] MEDS: OLANZapine **IM** 10 mg inj. IM ONE ×4 (11:07→23:59)
--- NOTE | 2025-04-30 11:37 | Physician Documentation ---
History of Present Illness ~ Chief Complaint: 5150 Stated Complaint: PSYCH Time Seen by MD: 11:26 Primary Medical Doctor: RADHA MEADE 74-year-old female well known to this ED presents were concerns over acute psychosis secondary to her not taking her medications appropriately I have obtained and aggressive and yelling obscenities during the initial interview. Has a history of dementia. unCooperative with any questioning Day of Onset: Apr 30, 2025 Medication Reconciliation Allergies: Coded Allergies: codeine (Verified Allergy, Intermediate, 04/24/25) benztropine (Verified Allergy, Unknown, 04/24/25) bupropion (Verified Allergy, Unknown, 04/24/25) makes eyes flutter. haloperidol (Verified Allergy, Unknown, 04/24/25) lockjaw Scheduled Benztropine Mesylate (Benztropine Mesylate), 1 TAB PO BID, (Reported) Divalproex Sodium ER* (Depakote ER*), 1 TAB PO BID, (Reported) Fluoxetine Hcl (Fluoxetine Hcl), 1 CAP PO DAILY, (Reported) [place] Carbonate (LITHIUM CARBONATE capsule), 3 CAP PO HS, (Reported) Olanzapine (Olanzapine), 1 TAB PO HS, (Reported) Pantoprazole Sodium (Pantoprazole Sodium), 1 TAB PO DAILY, (Reported) Propranolol Hcl* (Inderal*), 1 TAB PO PRN, (Reported) Discontinued Medications Atorvastatin Calcium (Atorvastatin Calcium), 20 MG PO HS Discontinued Reason: patient no longer taking Diclofenac Sodium (Voltaren Arthritis Pain), 1 APPLIC TP BID PRN for joint pain Discontinued Reason: patient no longer taking Divalproex Sodium (Divalproex Sodium Er), 250 MG PO BID Discontinued Reason: patient no longer taking Docusate Sodium (Docusate Sodium), 100 MG PO BID PRN for constipation Discontinued Reason: patient no longer taking Fluoxetine HCl (Fluoxetine HCl), 10 MG PO DAILY Discontinued Reason: patient no longer taking Fluoxetine Hcl (Fluoxetine Hcl), 1 CAP PO DAILY, (Reported) Discontinued Reason: Pt. condition changed Fluphenazine HCl (Fluphenazine HCl), 1 TAB PO DAILY, (Reported) Discontinued Reason: patient no longer taking Fluphenazine HCl (Fluphenazine HCl), 2 TAB PO HS, (Reported) Discontinued Reason: patient no longer taking Home Med List (No Home Medications), (Reported) Discontinued Reason: completed med therapy Lisinopril (Lisinopril), 5 MG PO DAILY Discontinued Reason: patient no longer taking [place] Carbonate (LITHIUM CARBONATE capsule), 2 CAP PO DAILY, (Reported) Discontinued Reason: patient no longer taking Olanzapine (Olanzapine), 1 TAB PO HS Discontinued Reason: patient no longer taking Olanzapine (Zyprexa), 1 TAB PO HS, (Reported) Discontinued Reason: patient no longer taking Pantoprazole Sodium (Pantoprazole Sodium), 40 MG PO DAILY Discontinued Reason: patient no longer taking Propranolol Hcl* (Inderal*), 1 TAB PO PRN, (Reported) Discontinued Reason: Pt. condition changed Trazodone HCl (Trazodone HCl), 1 TAB PO HS Discontinued Reason: patient no longer taking Past Medical History Past Medical History: *CARDIOVASCULAR*, Hypertension, Asthma, Bipolar, Schizophrenia Past Surgical History: , orthopedic surgeries, other Patient History: FH: cancer FATHER FH: depression MOTHER FH: heart attack FATHER Alcohol Use: None Drug Use: none Lives In: Home Review of Systems All Other Systems at this time: Reviewed and Negative ROS As stated above in the HPI, otherwise all systems are reviewed and negative. Physical Exam Vital Signs: Temperature: 98.0, Source: Temporal, Heart Rate: 118, Respiratory Rate: 16, BP: 174/95, Pulse Oximetry: 98, Weight: 86.000 Oxygen Flow Rate: 0 Physical Exam General: unCooperative Respiratory: Lungs clear, no respiratory distress. Cardiovascular: Regular rate and rhythm, no murmurs. Gastrointestinal: Soft, nontender, nondistended. Bowels sounds present. Skin: Normal color, warm and dry. No edema, no ecchymosis. Neurologic: Oriented x1 Psychiatric: Agitated screaming obscenities, Skin: Normal color, warm and dry. No edema, no ecchymosis. Progress Results/Orders Results/Orders Orders - REI CORADO KICKING MACHINE OPERATOR * Restraint Order/Renewal * (04/30/25 12:17) Benztropine 1mg Tablet (Cogentin 1mg Tab (04/30/25 20:00) Divalproex Sod Er-24 Hr Tablet (Depakote (04/30/25 20:00) [place] Carbonate Capsule ([place] Carbo (04/30/25 21:00) Propanolol Tablet (Inderal Tablet) (04/30/25 17:45) Fluoxetine Capsule (Prozac Capsule) (05/01/25 08:00) Olanzapine Tablet (Zyprexa Tablet) (04/30/25 21:00) Pantoprazole Tablet (Protonix) (05/01/25 08:00) Completed Orders - REI CORADO NP Diphenhydramine Inj (Benadryl Inj.) (04/30/25 12:20) Diazepam Inj (Valium Inj) (04/30/25 12:20) Diazepam Inj (Valium Inj) (04/30/25 13:45) Olanzapine Im (Zyprexa I.M. Im On (04/30/25 13:55) [place] Level (04/30/25 15:37) Benztropine 1mg Tablet (Cogentin 1mg Tab (04/30/25 20:00) Propanolol Tablet (Inderal Tablet) (04/30/25 17:45) Medications Received in ER Medications (Trade) Dose Ordered Sig/Astrid Route PRN Reason Start Time Stop Time Status Last Admin Dose Admin (ZyPREXA I.M. IM ONLY) 10 mg ONCE ONCE IM 04/30/25 11:10 04/30/25 11:11 DC 04/30/25 11:15 10 MG (Benadryl inj.) 50 mg ONCE ONCE IM 04/30/25 12:20 04/30/25 12:21 DC 04/30/25 12:27 50 MG (Valium inj) 10 mg ONCE ONCE IM 04/30/25 12:20 04/30/25 12:21 DC 04/30/25 12:27 10 MG (Valium inj) 10 mg ONCE ONCE IV 04/30/25 13:45 04/30/25 13:47 DC 04/30/25 14:06 10 MG (ZyPREXA I.M. IM ONLY) 10 mg ONCE ONCE IM 04/30/25 13:55 04/30/25 13:56 DC 04/30/25 14:07 10 MG Vital Signs 04/30/25 04/30/25 04/30/25 04/30/25 10:34 12:08 12:20 12:59 Temp 98.0 98.0 98.0 Pulse 118 113 107 102 Resp 16 16 19 19 B/P (MAP) 174/95 160/84 (109) 165/89 (114) 140/98 (112) Pulse Ox 98 94 99 100 O2 Flow Rate 0 0 0 04/30/25 04/30/25 04/30/25 04/30/25 13:09 13:28 14:06 14:06 Temp 98.0 98.0 Pulse 101 96 96 Resp 22 20 20 B/P (MAP) 153/125 (134) 146/85 (105) 146/85 (105) Pulse Ox 99 99 99 O2 Flow Rate 0 0 04/30/25 04/30/25 04/30/25 04/30/25 14:29 14:40 14:40 14:45 Temp 98.0 Pulse 99 82 Resp 22 20 20 B/P (MAP) 142/74 (96) 146/79 (101) Pulse Ox 97 99 O2 Flow Rate 0 0 04/30/25 04/30/25 04/30/25 04/30/25 15:00 15:15 15:30 15:45 Temp 98.0 98.0 98.0 98.0 Pulse 83 82 82 83 Resp 19 19 19 17 B/P (MAP) 156/89 (111) 149/75 (99) 155/76 (102) 145/66 (92) Pulse Ox 98 99 98 99 O2 Flow Rate 0 0 0 0 04/30/25 04/30/25 04/30/25 16:00 16:15 16:19 Temp 98.0 98.0 Pulse 84 80 72 Resp 19 19 17 B/P (MAP) 144/61 (88) 147/62 (90) 141/51 (81) Pulse Ox 98 97 99 O2 Flow Rate 0 0 0 Laboratory Tests Test 04/30/25 11:42 04/30/25 15:30 04/30/25 15:55 White Blood Count 10.5 Red Blood Count 4.49 Hemoglobin 13.8 Hematocrit 40.4 Mean Corpuscular Volume 90.1 Mean Corpuscular Hemoglobin 30.7 Mean Corpuscular Hemoglobin Concent 34.1 Red Cell Distribution Width 14.8 H Platelet Count 363 Mean Platelet Volume 9.1 Neutrophils (%) (Auto) 74.6 Lymphocytes (%) (Auto) 14.4 L Monocytes (%) (Auto) 10.4 Eosinophils (%) (Auto) 0.4 Basophils (%) (Auto) 0.2 Neutrophils # (Auto) 7.8 H Lymphocytes # (Auto) 1.5 Monocytes # (Auto) 1.1 H Eosinophils # (Auto) 0.0 Basophils # (Auto) 0.0 CBC Comment Sodium Level 145 Potassium Level 3.6 Chloride Level 107 Carbon Dioxide Level 22.5 L Anion Gap 16 Blood Urea Nitrogen 30 H Creatinine 1.22 H Estimated GFR/1.73 m2 43 BUN/Creatinine Ratio 24.6 H Glucose Level 152 H Calcium Level 9.6 Albumin 3.8 Thyroid Stimulating Hormone (TSH) 1.41 Chemistry Comments Ethyl Alcohol Level < 10 SARS-CoV-2 Antigen (Rapid) Negative [place] Level < 0.2 L Medical Decision Making Findings Patient was extremely agitated throughout her initial stay in the ED. required multiple doses of Zyprexa and Valium along with the one dose of Benadryl. She also required behavioral restraints to prevent her from harming herself. Patient is not naive to antipsychotics is her medication reconciliation indic ates she takes 10 mg Zyprexa daily Awaiting her lithium level however it appears that she has not been taking her medication as she is below therapeutic index. He also appears dehydrated but needs to be re-evaluated by tomorrow for further evaluation . She has grossly reduced GFR which should be monitored going forward to rule out ongoing kidney dysfunction Differential Dx:Considerations: Include: Alcohol abuse, Anxiety, Bipolar disorder, Conversion disorder, Depression, Encephaloathy, Homicidal, Panic disorder, Personality disorder, Schizophrenia, Substance abuse, Suicidal, Other Departure Impression: Primary Impression: Depression Additional Impressions: Bipolar affective disorder Cognitive deficits Gravely disabled Condition: Stable Additional Instructions: Transfer orders for : At this time there is no evidence of an emergent medical condition that would preclude (admission/transfer) to a psychiatric unit via protocol for further psychiatric, as well as medical evaluation and treatment. At this time I have no reason to believe that transfer via protocol would have serious medical compromise in the patient's health. Referrals: NO PRIMARY CARE PROVIDER (PCP) Education Educated: Patient Signature Scribe Signature: f Attestation: The note accurately reflects work and decisions made by me.Rei Corcoran NP 04/21 17:53 REI CORADO NP Apr 30, 2025 11:37
[2025-04-30 12:13] LABS: MEAN PLATELET VOLUME 9.1 FL (7.4-10.4); RED CELL DISTRIBUTION WIDTH 14.8 % (11.5-14.5)
[2025-04-30] MEDS: diazepam inj 5 MG/ML inj. IM ONE (12:27)
[2025-04-30 12:47] LABS: CREATININE 1.22 MG/DL (0.40-0.90); ETHANOL < 10 MG/DL (<10); TOTAL CARBON DIOXIDE 22.5 MMOL/L (24-32); eCRCL 35 ML/MIN; eGFR 43 ML/MIN
[2025-04-30] MEDS: diazepam inj 5 MG/ML inj. IV ONE (14:06)
[2025-04-30] MEDS ORDERED: PROP10TA10 PO (15:17)
[2025-04-30] MEDS ORDERED: OLAN10TA73 PO (15:17)
[2025-04-30] MEDS ORDERED: PANT40TA54 PO (15:17)
[2025-04-30] MEDS ORDERED: FLUO-81 PO (15:17)
[2025-04-30] MEDS: divalproex sod 250mg ER (24-hour) tablet PO SCH (20:00)
[2025-04-30] MEDS: benztropine 1mg tablet PO SCH (20:00)
[2025-05-01] MEDS: OLANZapine **IM** 10 mg inj. IM ONE (07:17)
[2025-05-01] MEDS: pantoprazole 40mg Tablet.DR PO SCH (08:00)
[2025-05-01 08:30] LABS: LEUKOCYTE ESTERASE ,URINE NEGATIVE (Neg); NITRITES, URINE NEGATIVE (Neg); OCCULT BLOOD,URINE NEGATIVE (Neg)
[2025-05-01 08:31] LABS: UA COLLECTION TYPE STRAIGHT CATH
[2025-05-01 08:37] LABS: SQUAMOUS EPITHELIAL CELL,UR FEW /LPF (FEW)
[2025-05-01 08:38] LABS: MUCUS STRANDS NONE SEEN /LPF (Neg)
[2025-05-01 09:08] LABS: URINE AMPHETAMINE SCREEN NEGATIVE (Neg); URINE BARBITUATE SCREEN NEGATIVE (Neg); URINE BENZODIAZEPINES SCREEN POSITIVE (Neg); URINE CANNABINOID SCREEN NEGATIVE (Neg); URINE COCAINE SCREEN NEGATIVE (Neg); URINE METHADONE SCREEN NEGATIVE (Neg); URINE OPIATE SCREEN NEGATIVE (Neg); URINE PHENCYCLIDINE SCREEN NEGATIVE (Neg)
[2025-05-01] MEDS ORDERED: potassium Cl 20 mEq SR tablet PO PRN ×2 (21:05)
[2025-05-01] MEDS ORDERED: magnesium sulf-water 4G/100mL 100 ML IV PRN (21:05)
[2025-05-01] MEDS ORDERED: magnesium sulf-water 2g/50mL 50 ML IV PRN (21:05)
[2025-05-01] MEDS ORDERED: potassium Cl 40MEQ/1/2NS 520ml 520 ML IV PRN (21:05)
[2025-05-01] MEDS ORDERED: magnesium Cl slow-release 64mg tablet PO PRN (21:05)
[2025-05-01] MEDS ORDERED: ondansetron/PF 4mg/2ml inj IV PRN (21:05)
--- NOTE | 2025-05-01 22:09 | HISTORY AND PHYSICAL-Residence ---
History & Physical Providers to CC Resident Creating Document: AVA WATTS RES ~ History of Present Illness Primary Medical Doctor: RADHA Reason for Admit\Complaint: Confusion, worsening dementia and bipolar History of Present Illness 74 years old female with history of grave disability and dementia bipolar disorders with psychiatric episode brought to the ED by paramedics due to confusion and bizarre behavior. Patient can not provide information all information gathered from medical staff and her daughter on the phone ( Clest [phone] ). The daughter reported she lives in [place] and she received a call from patient's neighbor regarding her bizarre behavior including breaking the glass in her house and walking with bare food in the Street. The daughter reported she noticed patient stopped taking her medication since last week. When I talked with the patient's she said she did not want to give me information regarding her medical history. When I ask about her date of she said she preferred to not give me the information. She does not know who is the president of [facility] and not oriented to place as well. Allergies: Coded Allergies: codeine (Verified Allergy, Intermediate, 04/24/25) bupropion (Verified Allergy, Unknown, 04/24/25) makes eyes flutter. haloperidol (Verified Allergy, Unknown, 04/24/25) lockjaw Home Medications Home Medications Active Reported Pantoprazole Sodium 40 Mg Tablet.dr 1 Tab PO DAILY Inderal* (Propranolol HCl) 10 Mg Tablet 1 Tab PO PRN Olanzapine 10 Mg Tablet 1 Tab PO HS Fluoxetine Hcl (Fluoxetine HCl) 10 Mg Capsule 1 Cap PO DAILY Depakote ER* (Divalproex Sodium) 250 Mg Tab.sr.24h 1 Tab PO BID 30 Days LITHIUM CARBONATE capsule ([place] Carbonate) 150 Mg Capsule 3 Cap PO HS 30 Days Benztropine Mesylate 1 Mg Tablet 1 Tab PO BID Past Medical History Past Medical History Bipolar disorders with psychotic features Dementia Past Surgical History Surgical History Comment Multiple orthopedic surgeries Family History Family History: FH: cancer FATHER FH: depression MOTHER FH: heart attack FATHER Past Social History Smoking: Non-Smoker Alcohol Use: None Drug Use: None Lives In: Home ROS ROS The history of present illness included a review of system, which yielded relevant positives and negatives Exam Vitals: Vital Signs Date Time Temp Pulse Resp B/P (MAP) Pulse Ox O2 Delivery O2 Flow Rate FiO2 05/01/25 09:00 14 05/01/25 07:45 68 141/84 (103) 99 0 05/01/25 05:26 96.8 General: General: Awake and Alert, mild agitation, not cooperating well for physical examination HEENT: Conjunctiva pink, Sclera clear, Mucus Membranes moist. Neck: Supple without masses and tenderness. Resp: Lungs clear to auscultation bilaterally. Heart: Regular Rate and rhythm, normal S1 and S2 Abdomen: Soft and non tender Extremities: No cyanosis,clubbing or edema. Skin: Warm and Dry. Neurological: Speech is clear, alert, not oriented to person place and time, not cooperating for full neurological exam Diagnostic Data Last Recorded Lab Results: 05/02/2543005/02/25430 Advance Care Planning Advanced Care plannin - 30 Minutes Additional Plan 74 years old female with history of dementia and bipolar disorders with psychiatric features brought to the ED with paramedics due to worsening symptoms Dementia Mental disorders including bipolar disorders with psychiatric features, patient discharged home from our mental health units last week [place] level is low, less than 0.2, urine tox negative Continue home medication including benzotropin, Depakote, fluoxetine, lithium, olanzapine, Inderal environmental services assistant consult due to multiple admission Psychiatric team consult in a.m. Possible UTI UA positive for WBC Patient can not cooperate for taking a history and urinary symptoms Keflex started p.o. Code Status: Full DVT prophylaxis: SCDs Line/tube: Peripheral GI prophylaxis: Protonix Nutrition: Regular Prognosis: Guarded Disposition: Continue monitoring patient in surgical floor, need briefcase sewer and forensic social worker and psychiatric team consult in a.m. Ava Watts MD Internal Medicine Resident Date of Service: May 01, 2025 Billing Provider: WAYNE LESTER MD Common Visit Codes: [id number] INP/OBS CARE (HIGH) Assessment/Plan Assessment Evaluated the patient with the help of residents. Discussed the case with them. Reviewed notes by Dr.Elahe Jesus GORDON. Agree with his assessments and plans. I also reviewed the patient's records. Will continue the current plans. AVA WATTS, RES May 01, 2025 22:09 WAYNE LESTER MD May 02, 2025 11:24
[2025-05-01 23:30] VITALS: BP 145/74; PULSE 102; RESP 17; TEMP 97.8; O2SAT 99
[2025-05-02 03:00] VITALS: RESP 17; O2SAT 99
[2025-05-02 04:50] LABS: MEAN PLATELET VOLUME 8.8 FL (7.4-10.4); RED CELL DISTRIBUTION WIDTH 14.5 % (11.5-14.5)
[2025-05-02 05:14] LABS: CREATININE 0.74 MG/DL (0.40-0.90); TOTAL CARBON DIOXIDE 28.2 MMOL/L (24-32); eCRCL 58 ML/MIN; eGFR 77 ML/MIN
[2025-05-02 06:00] VITALS: BP 130/61; PULSE 88; RESP 16; TEMP 97.6; O2SAT 98
[2025-05-02] MEDS: docusate sod 100mg capsule PO SCH (08:00)
[2025-05-02] MEDS: K and/or MAG REPLACEMENT MC SCH (08:00)
[2025-05-02 12:00] VITALS: BP 132/76; PULSE 99; RESP 19; TEMP 97.5; O2SAT 96
--- NOTE | 2025-05-02 15:50 | PROGRESS NOTE ---
Daily Progress Note Providers to CC ~ Antibiotic Timeout Antibiotic Ordered?: Yes Subjective And a saw the patient she was doing better than she has been earlier in the day and the patient was oriented to person and place. The patient is waiting to be evaluated by [facility] Objective Vital Signs Date Time Temp Pulse Resp B/P (MAP) Pulse Ox O2 Delivery O2 Flow Rate FiO2 05/02/25 12:00 97.5 99 19 132/76 (94) 96 Room Air 05/01/25 07:45 0 Result Diagram: 05/02/25 0431 05/02/25 0431 Gen. No acute distress alert and oriented person and place Lungs clear to ascultation bilaterally, no wheezes rales or rhonchi appreciated Heart normal sinus rhythm no murmurs rubs or clicks noted Abdomen soft nontender bowel sounds are normoactive Lower extremities no clubbing cyanosis, nor edema appreciated bilaterally Problem\Assessment\Plan Problems/Diagnosis: (1) Gravely disabled # gravely disabled/ bipolar disorder- History of psychiatric hospitalization On a 1799.11 hold with a sitter # pyuria likely secondary to UTI/cystitis- Urinalysis was not sent for culture Repeat urinalysis is ordered with culture and sensitivity if indicated On Keflex. # JANY present on admission Possibly secondary to ATN Resolved # DVT prophylaxis SQ Lovenox 05/02/2025 the patient is medically cleared to be evaluated by [facility] Date of Service: May 02, 2025 Billing Provider: TRANG LERMA DO Common Visit Codes: [id number] INP/OBS CARE(HIGH) TRANG LERMA DO May 02, 2025 15:49
[2025-05-02 18:00] VITALS: BP 138/66; PULSE 80; RESP 18; TEMP 97.5; O2SAT 99
[2025-05-02] MEDS: enoxaparin 40mg/0.4ml syringe SUBCUT SCH (20:00)
[2025-05-03 06:05] LABS: MEAN PLATELET VOLUME 9.0 FL (7.4-10.4); RED CELL DISTRIBUTION WIDTH 14.2 % (11.5-14.5)
[2025-05-03 06:19] LABS: CREATININE 0.70 MG/DL (0.40-0.90); TOTAL CARBON DIOXIDE 27.4 MMOL/L (24-32); eCRCL 61 ML/MIN; eGFR 82 ML/MIN
--- NOTE | 2025-05-03 21:00 | PROGRESS NOTE ---
Daily Progress Note Providers to CC ~ Antibiotic Timeout Antibiotic Ordered?: Yes Subjective The patient was folding her blankets and putting them in her shopping bag she was spending some time organizing these blanket. The patient has no acute complaints and there were no voiced by nursing staff awaiting placement in his psychiatric inpatient hospitalization. Objective Vital Signs Date Time Temp Pulse Resp B/P (MAP) Pulse Ox O2 Delivery O2 Flow Rate FiO2 05/03/25 12:27 Room Air 0.0 05/02/25 18:00 97.5 80 18 138/66 (90) 99 Result Diagram: 05/03/25 0540 05/03/25 0540 Gen. No acute distress alert and oriented person and place Lungs clear to ascultation bilaterally, no wheezes rales or rhonchi appreciated Heart normal sinus rhythm no murmurs rubs or clicks noted Abdomen soft nontender bowel sounds are normoactive Lower extremities no clubbing cyanosis, nor edema appreciated bilaterally Problem\Assessment\Plan Problems/Diagnosis: (1) Gravely disabled # gravely disabled/ bipolar disorder- History of psychiatric hospitalization On a 179.11 hold with a sitter [facility] has placed the patient on a 5150 hold # pyuria likely secondary to UTI/cystitis- Urinalysis was not sent for culture Repeat urinalysis is ordered with culture and sensitivity if indicated On Keflex. # JANY present on admission Possibly secondary to ATN Resolved # DVT prophylaxis SQ Lovenox 05/02/2025 the patient is medically cleared to be evaluated by [facility] 05/03/2025 the [facility] has placed the patient on a 5150 hold today Date of Service: May 03, 2025 Billing Provider: TRANG LERMA DO Common Visit Codes: [id number] INP/OBS CARE(MOD) TRANG LERMA DO May 03, 2025 21:00
[2025-05-03 22:00] VITALS: BP 128/64; PULSE 109; RESP 24; TEMP 98.5; O2SAT 95
[2025-05-04 05:31] LABS: MEAN PLATELET VOLUME 8.7 FL (7.4-10.4); RED CELL DISTRIBUTION WIDTH 14.3 % (11.5-14.5)
[2025-05-04 05:51] LABS: CREATININE 0.79 MG/DL (0.40-0.90); TOTAL CARBON DIOXIDE 27.5 MMOL/L (24-32); eCRCL 54 ML/MIN; eGFR 71 ML/MIN
[2025-05-04 06:00] VITALS: BP 131/65; PULSE 78; RESP 18; TEMP 98.1; O2SAT 98
[2025-05-04 10:00] VITALS: RESP 18; O2SAT 98
[2025-05-04 11:00] VITALS: BP 138/62; PULSE 94; RESP 17; TEMP 97.3; O2SAT 94
[2025-05-04 18:00] VITALS: BP 130/71; PULSE 97; RESP 17; TEMP 97.3; O2SAT 98
--- NOTE | 2025-05-04 19:36 | PROGRESS NOTE ---
Daily Progress Note Providers to CC ~ Antibiotic Timeout Antibiotic Ordered?: No Subjective The patient is fully in her sheets today she had taken off her trousers I put a sheet over her legs when I examined her. There were no acute complaints voiced by nursing staff the patient is waiting inpatient psychiatric hospital transfer Objective Vital Signs Date Time Temp Pulse Resp B/P (MAP) Pulse Ox O2 Delivery O2 Flow Rate FiO2 05/04/25 11:00 97.3 94 17 138/62 (87) 94 Room Air 05/04/25 10:00 0.0 Result Diagram: 05/04/25 0452 05/04/25 045 Gen. No acute distress alert and oriented person and place Lungs clear to ascultation bilaterally, no wheezes rales or rhonchi appreciated Heart normal sinus rhythm no murmurs rubs or clicks noted Abdomen soft nontender bowel sounds are normoactive Lower extremities no clubbing cyanosis, nor edema appreciated bilaterally Problem\Assessment\Plan Problems/Diagnosis: (1) Gravely disabled # gravely disabled/ bipolar disorder- [facility] # pyuria likely secondary to UTI/cystitis- Urinalysis was not sent for culture Repeat urinalysis is ordered with culture and sensitivity if indicated Completed a course of p.o. Keflex. # JANY present on admission Possibly secondary to ATN Resolved # DVT prophylaxis SQ Lovenox 05/02/2025 the patient is medically cleared to be evaluated by [facility] 05/03/2025 the [facility] has placed the patient on a 5150 hold today Date of Service: May 04, 2025 Billing Provider: TRANG LERMA DO Common Visit Codes: [id number] INP/OBS CARE(MOD) TRANG LERMA DO May 04, 2025 19:36
[2025-05-04] MEDS: magnesium hydroxide 30ml (MOM) UD suspension PO PRN (19:48)
[2025-05-04 20:00] VITALS: RESP 17; O2SAT 98
[2025-05-04 21:45] VITALS: BP 130/58; PULSE 86; RESP 16; TEMP 98.1; O2SAT 98
[2025-05-05] MEDS ORDERED: ibuprofen tablet 400 MG TABLET PO PRN (03:20)
[2025-05-05] MEDS: OLANZapine **IM** 10 mg inj. IM ONE (04:48)
[2025-05-05 06:24] LABS: MEAN PLATELET VOLUME 8.8 FL (7.4-10.4); RED CELL DISTRIBUTION WIDTH 14.1 % (11.5-14.5)
[2025-05-05 07:13] LABS: CREATININE 0.75 MG/DL (0.40-0.90); TOTAL CARBON DIOXIDE 27.3 MMOL/L (24-32); eCRCL 57 ML/MIN; eGFR 76 ML/MIN
[2025-05-05 09:00] VITALS: RESP 18; O2SAT 98
[2025-05-05 11:00] VITALS: BP 135/60; PULSE 81; RESP 18; TEMP 97.7; O2SAT 97
[2025-05-05] MEDS: fluticasone nasal spray 16GM bottle NS SCH (14:12)
[2025-05-05 18:00] VITALS: BP 127/61; PULSE 90; RESP 18; TEMP 96.5; O2SAT 96
--- NOTE | 2025-05-05 19:34 | PROGRESS NOTE ---
Daily Progress Note Providers to CC ~ Antibiotic Timeout Antibiotic Ordered?: No Subjective The patient complains of a cough and was requesting antibiotics however on examination the patient had coarse breath sounds in the upper airway and has a significant right-sided nasal congestion thus I placed the patient on Zyrtec and on Flonase nasal spray Objective Vital Signs Date Time Temp Pulse Resp B/P (MAP) Pulse Ox O2 Delivery O2 Flow Rate FiO2 05/05/25 11:00 97.7 81 18 135/60 (85) 97 Room Air 05/05/25 09:00 0.0 Result Diagram: 05/05/2551605/05/25516 Gen. No acute distress alert and oriented person and place HEENT significant right-sided nasal congestion, minimal on the left Lungs coarse breath sounds in the upper lung guillory otherwise clear to ascultation bilaterally, no wheezes rales or rhonchi appreciated Heart normal sinus rhythm no murmurs rubs or clicks noted Abdomen soft nontender bowel sounds are normoactive Lower extremities no clubbing cyanosis, nor edema appreciated bilaterally Problem\Assessment\Plan Problems/Diagnosis: (1) Gravely disabled # gravely disabled/ bipolar disorder- [facility] # pyuria likely secondary to UTI/cystitis- Urinalysis was not sent for culture Repeat urinalysis is ordered with culture and sensitivity if indicated Completed a course of p.o. Keflex. # JANY present on admission Possibly secondary to ATN Resolved # allergic rhinitis with secondary cough Zyrtec Flonase nasal spray # DVT prophylaxis SQ Lovenox 05/02/2025 the patient is medically cleared to be evaluated by [facility] 05/03/2025 the [facility] has placed the patient on a 5150 hold today 05/05/2025 The [facility] has renewed the patient's 5150 Date of Service: May 05, 2025 Billing Provider: TRANG LERMA DO Common Visit Codes: [id number] INP/OBS CARE(MOD) TRANG LERMA DO May 05, 2025 19:33
[2025-05-06 08:00] VITALS: RESP 19; O2SAT 96
[2025-05-06 08:16] LABS: MEAN PLATELET VOLUME 8.9 FL (7.4-10.4); RED CELL DISTRIBUTION WIDTH 14.5 % (11.5-14.5)
[2025-05-06 08:31] LABS: CREATININE 0.72 MG/DL (0.40-0.90); TOTAL CARBON DIOXIDE 28.6 MMOL/L (24-32); eCRCL 59 ML/MIN; eGFR 79 ML/MIN
[2025-05-06 11:00] VITALS: BP 133/68; PULSE 87; RESP 19; TEMP 97.3; O2SAT 96
--- NOTE | 2025-05-06 17:21 | PROGRESS NOTE ---
Daily Progress Note Providers to CC ~ Antibiotic Timeout Antibiotic Ordered?: No Subjective When I was examining the patient today and listening to her chest she informed me I could also examine over here and pointed to her breast for which I informed the patient no I do not feel comfortable doing that and left he patient's room Objective Vital Signs Date Time Temp Pulse Resp B/P (MAP) Pulse Ox O2 Delivery O2 Flow Rate FiO2 05/06/25 11:00 97.3 87 19 133/68 (89) 96 Room Air 05/06/25 08:00 0.0 Result Diagram: 05/06/25 0730 05/06/25 0730 Gen. No acute distress alert and oriented person and place HEENT significant right-sided nasal congestion, minimal on the left Lungs coarse breath sounds in the upper lung guillory otherwise clear to ascultation bilaterally, no wheezes rales or rhonchi appreciated Heart normal sinus rhythm no murmurs rubs or clicks noted Abdomen soft nontender bowel sounds are normoactive Lower extremities no clubbing cyanosis, nor edema appreciated bilaterally Problem\Assessment\Plan Problems/Diagnosis: (1) Gravely disabled # gravely disabled/ bipolar disorder- History of psychiatric hospitalization On a 179. hold with a sitter [facility] has placed the patient on a 5150 hold # pyuria likely secondary to UTI/cystitis- Urinalysis was not sent for culture Repeat urinalysis is ordered with culture and sensitivity if indicated Completed a course of p.o. Keflex. # JANY present on admission Possibly secondary to ATN Resolved # allergic rhinitis with secondary cough Zyrtec Flonase nasal spray # DVT prophylaxis SQ Lovenox 05/02/2025 the patient is medically cleared to be evaluated by [facility] 05/03/2025 the [facility] has placed the patient on a 5150 hold today 05/05/2025 [facility] Date of Service: May 06, 2025 Billing Provider: TRANG LERMA DO Common Visit Codes: [id number] INP/OBS CARE(MOD) TRANG LERMA DO May 06, 2025 17:21
[2025-05-06 18:00] VITALS: BP 148/54; PULSE 52; RESP 17; TEMP 97.5; O2SAT 97
[2025-05-06 22:00] VITALS: BP 129/49; PULSE 83; RESP 20; TEMP 98.2; O2SAT 98
[2025-05-07 06:00] VITALS: BP 129/52; PULSE 74; RESP 19; TEMP 98.4; O2SAT 94
[2025-05-07 08:00] VITALS: RESP 19; O2SAT 94
[2025-05-07] MEDS: guaiFENesin 200 MG/10 ML oral syrup UD cup PO PRN (09:34)
[2025-05-07 10:00] VITALS: BP 142/64; PULSE 105; RESP 20; TEMP 97; O2SAT 98
--- NOTE | 2025-05-07 15:26 | PROGRESS NOTE ---
Daily Progress Note Providers to CC ~ Antibiotic Timeout Antibiotic Ordered?: No Subjective The patient was requesting to go to lunch with her ex- I informed her that she can not leave the hospital she requested that he visit her and I did relayed this to the charge nurse Callie Objective Vital Signs Date Time Temp Pulse Resp B/P (MAP) Pulse Ox O2 Delivery O2 Flow Rate FiO2 05/07/25 10:00 97.0 105 20 142/64 (90) 98 Room Air 05/07/25 08:00 0.0 Result Diagram: 05/06/25 0730 05/06/25 0730 Gen. No acute distress alert and oriented person and place HEENT significant right-sided nasal congestion, minimal on the left Lungs coarse breath sounds in the upper lung guillory otherwise clear to ascultation bilaterally, no wheezes rales or rhonchi appreciated Heart normal sinus rhythm no murmurs rubs or clicks noted Abdomen soft nontender bowel sounds are normoactive Lower extremities no clubbing cyanosis, nor edema appreciated bilaterally Problem\Assessment\Plan Problems/Diagnosis: (1) Gravely disabled # gravely disabled/ bipolar disorder- [facility] # pyuria likely secondary to UTI/cystitis- Urinalysis was not sent for culture Repeat urinalysis is ordered with culture and sensitivity if indicated Completed a course of p.o. Keflex. # JANY present on admission Possibly secondary to ATN Resolved # allergic rhinitis with secondary cough Zyrtec Flonase nasal spray # DVT prophylaxis SQ Lovenox 05/02/2025 the patient is medically cleared to be evaluated by [facility] 05/03/[address] [facility] has placed the patient on a 5150 hold today 05/05/2025 The [facility] has renewed the patient's 5150 05/07/2025 The patient is stable and awaiting transferred to inpatient psychiatric hospital Date of Service: May 07, 2025 Billing Provider: TRANG LERMA DO Common Visit Codes: [id number] INP/OBS CARE(MOD) TRANG LERMA DO May 07, 2025 15:26
[2025-05-07 22:00] VITALS: BP 140/63; PULSE 87; RESP 20; TEMP 98.4; O2SAT 95
[2025-05-08] MEDS: OLANZapine **IM** 10 mg inj. IM ONE (00:02)
[2025-05-08 05:00] VITALS: BP 129/75; PULSE 75; RESP 18; TEMP 97.3; O2SAT 96
[2025-05-08 08:00] VITALS: RESP 18; O2SAT 94
[2025-05-08 10:00] VITALS: BP 117/63; PULSE 70; RESP 17; TEMP 98; O2SAT 96
[2025-05-08 18:00] VITALS: BP 138/68; PULSE 87; RESP 20; TEMP 98.1; O2SAT 97
--- NOTE | 2025-05-08 18:12 | PROGRESS NOTE ---
Daily Progress Note Providers to CC ~ Antibiotic Timeout Antibiotic Ordered?: No Subjective The patient was requesting to go out and get sunglasses that is safe way I informed her she is on mental health hold awaiting for placement there were no acute concerns voiced by nursing staff Objective Vital Signs Date Time Temp Pulse Resp B/P (MAP) Pulse Ox O2 Delivery O2 Flow Rate FiO2 05/08/25 10:00 98.0 70 17 117/63 (81) 96 Room Air 05/07/25 08:00 0.0 Result Diagram: 05/06/25 0730 05/06/25 0730 Gen. No acute distress alert and oriented person and place HEENT significant right-sided nasal congestion, minimal on the left Lungs coarse breath sounds in the upper lung guillory otherwise clear to ascultation bilaterally, no wheezes rales or rhonchi appreciated Heart normal sinus rhythm no murmurs rubs or clicks noted Abdomen soft nontender bowel sounds are normoactive Lower extremities no clubbing cyanosis, nor edema appreciated bilaterally Problem\Assessment\Plan Problems/Diagnosis: (1) Gravely disabled # gravely disabled/ bipolar disorder- History of psychiatric hospitalization On a hold with a [facility] has placed the patient on a 5150 hold # pyuria likely secondary to UTI/cystitis- # metabolic encephalopathy secondary to UTI present on admission has resolved Urinalysis was not sent for culture Repeat urinalysis is ordered with culture and sensitivity if indicated Completed a course of p.o. Keflex. # JANY present on admission Possibly secondary to ATN Resolved # allergic rhinitis with secondary cough Zyrtec Flonase nasal spray # DVT prophylaxis SQ Lovenox 05/02/2025 the patient is medically cleared to be evaluated by [facility] 05/03/2025 the [facility] has placed the patient on a 5150 hold today 05/05/[address] [facility] has renewed the patient's 5150 05/07/2025 The patient is stable and awaiting to be transferred to inpatient psychiatric hospital 05/08/2025 [facility] has renewed the patient's 5150 today Date of Service: May 08, 2025 Billing Provider: TRANG LERMA DO Common Visit Codes: [id number] INP/OBS CARE(MOD) TRANG LERMA DO May 08, 2025 18:12
[2025-05-08] MEDS: OLANZapine **IM** 10 mg inj. IM PRN (21:58)
[2025-05-08 22:00] VITALS: BP 132/62; PULSE 87; RESP 20; TEMP 98; O2SAT 96
[2025-05-09 06:00] VITALS: PULSE 78; RESP 19; TEMP 97.9; O2SAT 96
[2025-05-09 10:00] VITALS: BP 135/58; PULSE 73; RESP 17; TEMP 97.2; O2SAT 100
--- NOTE | 2025-05-09 17:36 | PROGRESS NOTE ---
Daily Progress Note Providers to CC ~ Antibiotic Timeout Antibiotic Ordered?: No Subjective Chief complaint none Review of systems unable to be obtained Objective Vital Signs Date Time Temp Pulse Resp B/P (MAP) Pulse Ox O2 Delivery O2 Flow Rate FiO2 05/09/25 10:00 97.2 73 17 135/58 (83) 100 Room Air 05/09/25 08:00 0.0 Result Diagram: 05/06/25 0730 05/06/25 0730 Patient is alert and oriented x1 in no acute distress sitting up comfortably speaking in full sentences with a very pressured speech HEENT normocephalic nontraumatic head CVS first and second heart sounds are regular rate rhythm Respiratory system is clear to auscultate bilaterally Abdomen is soft obese bowel sounds are positive nontender nondistended Extremities no clubbing cyanosis or edema Problem\Assessment\Plan Problems/Diagnosis: (1) Gravely disabled # gravely disabled/ bipolar disorder- History of psychiatric hospitalization On a 179. hold with a [facility] has placed the patient on a 5150 hold I spoke to [facility] and they can not neither clear her Patient needs placement They suggested a start the patient on Abilify which he has done well in the past As an outpatient is switch her over to Abilify injections once in a month # pyuria likely secondary to UTI/cystitis- # metabolic encephalopathy secondary to UTI present on admission has resolved Urinalysis was not sent for culture Repeat urinalysis is ordered with culture and sensitivity if indicated Completed a course of p.o. Keflex. # JANY present on admission Possibly secondary to ATN Resolved # allergic rhinitis with secondary cough Zyrtec Flonase nasal spray # DVT prophylaxis SQ Lovenox 05/02/2025 the patient is medically cleared to be evaluated by [facility] 05/03/2025 the [facility] has placed the patient on a 5150 hold today 05/05/2025 The [facility] has renewed the patient's 5150 05/07/2025 The patient is stable and awaiting to be transferred to inpatient psychiatric hospital 05/08/2025 [facility] has renewed the patient's 5150 today 04/2025 I spoke to [facility] a renewed the patient's 5150 the patient's shunt is well known to them and they says she does well as long as she is on the medications which when she stops feeling better she stops maybe she would benefit from an injectable Abilify so she does not stopped taking the medication which is about once a month she is being evaluated by our mental health for possible placement into inpatient mental health. Date of Service: May 09, 2025 Billing Provider: KYM CALLES MD Common Visit Codes: [id number] INP/OBS CARE(HIGH) KYM CALLES MD May 09, 2025 17:36
[2025-05-09 22:00] VITALS: BP 131/81; PULSE 103; RESP 18; TEMP 98.3; O2SAT 94
[2025-05-10 06:38] VITALS: BP 139/49; PULSE 98; RESP 18; TEMP 98.5; O2SAT 97
--- NOTE | 2025-05-10 08:21 | PROGRESS NOTE ---
Daily Progress Note Providers to CC ~ Antibiotic Timeout Antibiotic Ordered?: No Subjective Chief complaint none Objective Vital Signs Date Time Temp Pulse Resp B/P (MAP) Pulse Ox O2 Delivery O2 Flow Rate FiO2 05/10/25 06:38 98.5 98 18 139/49 (79) 97 Room Air 05/09/25 20:00 0.0 Result Diagram: 05/06/25 0730 05/06/25 0730 Patient is alert and oriented x1 in no acute distress sitting up comfortably speaking in full sentences with a very pressured speech HEENT normocephalic nontraumatic head CVS first and second heart sounds are regular rate rhythm Respiratory system is clear to auscultate bilaterally Abdomen is soft obese bowel sounds are positive nontender nondistended Extremities no clubbing cyanosis or edema Problem\Assessment\Plan Problems/Diagnosis: (1) Gravely disabled # gravely disabled/ bipolar disorder- [facility] I spoke to [facility] and they can not neither clear her Patient needs placement They suggested a start the patient on Abilify which he has done well in the past As an outpatient is switch her over to Abilify injections once in a month # pyuria likely secondary to UTI/cystitis- # metabolic encephalopathy secondary to UTI present on admission has resolved Urinalysis was not sent for culture Repeat urinalysis is ordered with culture and sensitivity if indicated Completed a course of p.o. Keflex. # JANY present on admission Possibly secondary to ATN Resolved # allergic rhinitis with secondary cough Zyrtec Flonase nasal spray # DVT prophylaxis SQ Lovenox 05/02/2025 the patient is medically cleared to be evaluated by [facility] 05/03/2025 the [facility] has placed the patient on a 5150 hold today 05/05/2025 The [facility] has renewed the patient's 5150 05/07/2025 The patient is stable and awaiting to be transferred to inpatient psychiatric hospital 05/08/2025 [facility] has renewed the patient's 5150 today 05/10/2025 patient has been re-evaluated and renewed on 5150 is being evaluated by our [facility] for possible inpatient Date of Service: May 10, 2025 Billing Provider: KYM CALLES MD Common Visit Codes: [id number] INP/OBS CARE(HIGH) KYM CALLES MD May 10, 2025 08:21
[2025-05-10 10:00] VITALS: BP 120/61; PULSE 83; RESP 16; TEMP 98; O2SAT 98
[2025-05-10] MEDS: aripiprazole 400mg suspension ER syringe IM SCH (11:16)
[2025-05-10 22:00] VITALS: BP 118/51; PULSE 72; RESP 20; TEMP 97.9; O2SAT 98
[2025-05-11 10:00] VITALS: BP 103/56; PULSE 96; RESP 16; TEMP 97.4; O2SAT 97
--- NOTE | 2025-05-11 14:23 | PROGRESS NOTE ---
Daily Progress Note Providers to CC ~ Antibiotic Timeout Antibiotic Ordered?: No Subjective Chief complaint she says she is cleaning Review of systems unable to be obtained patient pleasantly confused Objective Vital Signs Date Time Temp Pulse Resp B/P (MAP) Pulse Ox O2 Delivery O2 Flow Rate FiO2 05/11/25 10:00 97.4 96 16 103/56 (72) 97 Room Air 05/11/25 08:53 0.0 Patient is alert and oriented x1 in no acute distress sitting up comfortably speaking in full sentences with a very pressured speech HEENT normocephalic nontraumatic head CVS first and second heart sounds are regular rate rhythm Respiratory system is clear to auscultate bilaterally Abdomen is soft obese bowel sounds are positive nontender nondistended Extremities no clubbing cyanosis or edema Problem\Assessment\Plan Problems/Diagnosis: (1) Gravely disabled # gravely disabled/ bipolar disorder- History of psychiatric hospitalization On a 179.11 hold with a [facility] has placed the patient on a 5150 hold I spoke to [facility] and they can not neither clear her Patient needs placement They suggested a start the patient on Abilify which he has done well in the past As an outpatient is switch her over to Abilify injections once in a month # pyuria likely secondary to UTI/cystitis- # metabolic encephalopathy secondary to UTI present on admission has resolved Urinalysis was not sent for culture Repeat urinalysis is ordered with culture and sensitivity if indicated Completed a course of p.o. Keflex. # JANY present on admission Possibly secondary to ATN Resolved # allergic rhinitis with secondary cough Zyrtec Flonase nasal spray # DVT prophylaxis SQ Lovenox Patient is not being admitted to Inpatient mental health clinic because of her underlying diagnosis of dementia. But I am not sure where there is thick diagnosis came from. Patient is here secondary to her mental health an acute psychosis. Date of Service: May 11, 2025 Billing Provider: KYM CALLES MD Common Visit Codes: [id number] INP/OBS CARE(HIGH) KYM CALLES MD May 11, 2025 14:23
--- NOTE | 2025-05-11 17:04 | [facility] CONSULT REPORT ---
[facility] Procedure Note [facility] Procedure Note Consult [facility] Note # Demographics Consult Type: General Neurology Patient Location: Inpatient First Name: Netta Last Name: Falguni Date of : 1950 Age: 74 Gender: Female Facility: [facility] Time of Initial Page ([place] Time): 05/11/2025 16:51 Time of Return Call ([place] Time): 05/11/2025 16:51 # HPI History: 74yof with bipolar disorder who is currently pending psych placement and acute psychosis. Neurology consulted for dementia eval. # Exam Mental Status: - awake - alert and oriented x 3 Language: - normal speech - no aphasia tangential thinking Cranial Nerves: - normal - extra ocular movements intact Motor: moves extremities spontaneously # Assessment Impression: Unfortunately, dementia eval can not be performed in acute hospital setting via tele. Pt needs frequent redirecting for neuro evaluation and questioning. Recommend further outpatient neurology workup if needing evaluation for dementia however, do not suspect this should preclude pt from further psychiatric workup and treatment # Plan Other: - If patient has any neurological deterioration please call me back immediately # Logistics Attestation of consult completion: The patient is located at: [facility]. Facility staff participated in the visit. I performed this telemedicine visit from my offsite office utilizing interactive 2 way audio and visual telecommunication technology. Total time spent in telemedicine encounter: I spent 23 minutes reviewing clinical data and/or imaging, obtaining history, examining the patient, communicating with the onsite care team, and in preparation of this report. # Demographics First Name: Netta Last Name: Falguni Facility: [facility] Consult Order placed for: Yes MARCIA RAYMOND MD May 11, 2025 17:04
[2025-05-11 22:00] VITALS: BP 103/76; PULSE 78; RESP 18; TEMP 97.5; O2SAT 99
[2025-05-12 10:00] VITALS: BP 127/63; PULSE 88; RESP 15; TEMP 97.1; O2SAT 98
--- NOTE | 2025-05-12 12:36 | PROGRESS NOTE ---
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 HEENT normocephalic nontraumatic head CVS first and second heart sounds are regular rate rhythm Respiratory system is clear to auscultate bilaterally Abdomen is soft obese bowel sounds are positive nontender nondistended Extremities no clubbing cyanosis or edema Problem\Assessment\Plan Problems/Diagnosis: (1) Gravely disabled # gravely disabled/ bipolar disorder- History of psychiatric hospitalization On a 179.11 hold with a [facility] has placed the patient on a 5150 hold I spoke to [facility] and they can not neither clear her Patient needs placement They suggested a start the patient on Abilify which he has done well in the past As an outpatient is switch her over to Abilify injections once in a month # pyuria likely secondary to UTI/cystitis- # metabolic encephalopathy secondary to UTI present on admission has resolved Urinalysis was not sent for culture Repeat urinalysis is ordered with culture and sensitivity if indicated Completed a course of p.o. Keflex. # JANY present on admission Possibly secondary to ATN Resolved # allergic rhinitis with secondary cough Zyrtec Flonase nasal spray # DVT prophylaxis SQ Lovenox Patient is not being admitted to Inpatient mental health clinic because of her underlying diagnosis of dementia. But I am not sure where there is that diagnosis came from. Patient is here secondary to her mental health an acute psychosis. Patient is to be seen by tele neurology to help with the diagnosis to either eliminate or add the diagnosis of dementia to further assist with patient's discharge Date of Service: May 12, 2025 Billing Provider: KYM CALLES MD Common Visit Codes: [id number] INP/OBS CARE(LOW) KYM CALLES MD May 12, 2025 12:36
[2025-05-12 18:00] VITALS: BP 142/57; PULSE 80; RESP 20; TEMP 98.4; O2SAT 100
[2025-05-12 20:00] VITALS: RESP 18; O2SAT 99
[2025-05-12 22:00] VITALS: BP 129/64; PULSE 79; RESP 18; TEMP 98.6; O2SAT 99
[2025-05-13 08:00] VITALS: RESP 17; O2SAT 96
[2025-05-13 18:30] VITALS: BP 108/75; PULSE 86; RESP 20; TEMP 97.6; O2SAT 97
[2025-05-13 20:20] VITALS: RESP 16
--- NOTE | 2025-05-13 20:42 | PROGRESS NOTE ---
Daily Progress Note Providers to CC ~ Antibiotic Timeout Antibiotic Ordered?: No Subjective Patient was seen in her room in presence of [facility] . she cooperated during physical examination and did not showed any signs of psychosis. As per patient she health at her home and they come almost daily to help her out for different chores. She wanted to know what is her long-term prognosis. Objective Vital Signs Date Time Temp Pulse Resp B/P (MAP) Pulse Ox O2 Delivery O2 Flow Rate FiO2 05/13/25 08:00 17 96 Room Air 05/12/25 22:00 98.6 79 129/64 (85) 05/12/25 20:00 0.0 General-patient not in any acute distress, alert awake oriented, chronically ill-appearing, looks comfortable HEENT-atraumatic normocephalic, neck supple without elevated JVD, no thyromegaly or carotid bruit. No lymphadenopathy bilaterally. Eyes-no icterus or pallor seen in eyes Chest-clear to auscultation bilaterally, breathing nonlabored no tachypnea, no wheezing, no crepitation, no crackles. Heart-S1-S2 normal, regular heart rate no murmur Abdomen bowel sounds positive on auscultation, soft nondistended nontender no guarding, no rigidity Skin no active skin rash Neurology-grossly intact, nonfocal alert awake oriented Extremity- no pedal edema able to move all 4 extremities, ambulates Psychiatry - patient is not confused or agitated cooperated during physical examination. No signs of psychosis Problem\Assessment\Plan Problems/Diagnosis: (1) Gravely disabled # gravely disabled/ bipolar disorder- History of psychiatric hospitalization On a 1798. hold with a [facility] has placed the patient on a 5150 hold Patient needs placement They suggested a start the patient on Abilify which he has done well in the past As an outpatient is switch her over to Abilify injections once in a month # pyuria likely secondary to UTI/cystitis-Completed a course of p.o. Keflex # metabolic encephalopathy secondary to UTI Repeat urinalysis is ordered with culture and sensitivity if indicated . # JANY present on admission Possibly secondary to ATN Resolved # allergic rhinitis with secondary cough stopped Zyrtec Flonase nasal spray # DVT prophylaxis SQ Lovenox Patient is here secondary to her mental health an acute psychosis. Patient is currently on Abilify, Cogentin, divalproex sodium, Prozac, lithium, olanzapine which are all psychiatric medication she needs repeat psychiatric evaluation to further assist in her discharge. Date of Service: May 13, 2025 Billing Provider: LAUREN MALDONADO MD Common Visit Codes: [id number] INP/OBS CARE(HIGH) LAUREN MALDONADO MD May 13, 2025 20:41
[2025-05-14 06:00] VITALS: BP 114/75; PULSE 78; RESP 18; TEMP 98; O2SAT 98
[2025-05-14] MEDS: propranolol 10mg tablet PO PRN (10:09)
[2025-05-14 11:00] VITALS: BP 120/75; PULSE 75; RESP 17; TEMP 97.3; O2SAT 97
[2025-05-14 18:30] VITALS: BP 143/66; PULSE 92; RESP 18; TEMP 98.3; O2SAT 96
--- NOTE | 2025-05-14 19:54 | PROGRESS NOTE ---
Daily Progress Note Providers to CC ~ Antibiotic Timeout Antibiotic Ordered?: No Subjective Patient is seen in her room she showed signs of psychosis and she feel that somebody inseminated her and that is the reason her belly is bigger. She feels that she is . She likes clean room and cleaning and organizing the room by herself Objective Vital Signs Date Time Temp Pulse Resp B/P (MAP) Pulse Ox O2 Delivery O2 Flow Rate FiO2 05/14/25 11:00 97.3 75 17 120/75 (90) 97 Room Air 05/13/25 20:20 0.0 General-patient not in any acute distress, alert awake oriented, chronically ill-appearing, Obese, looks comfortable HEENT-atraumatic normocephalic, neck supple without elevated JVD, no thyromegaly or carotid bruit. No lymphadenopathy bilaterally. Eyes-no icterus or pallor seen in eyes Chest-clear to auscultation bilaterally, breathing nonlabored no tachypnea, no wheezing, no crepitation, no crackles. Heart-S1-S2 normal, regular heart rate no murmur Abdomen bowel sounds positive on auscultation, soft nondistended nontender no guarding, no rigidity Skin no active skin rash Neurology-grossly intact, nonfocal awake, cooperated during physical examination and responded to verbal commands Extremity- no pedal edema able to move all 4 extremities, ambulates Psychiatry - patient is confused or agitated cooperated during physical examination. signs of psychosis present Problem\Assessment\Plan Problems/Diagnosis: (1) Gravely disabled # gravely disabled/ bipolar disorder- History of psychiatric hospitalization On a 1798. hold with a [facility] has placed the patient on a 5150 hold Patient needs placement They suggested a start the patient on Abilify which he has done well in the past As an outpatient is switch her over to Abilify injections once in a month # pyuria likely secondary to UTI/cystitis-Completed a course of p.o. Keflex # metabolic encephalopathy secondary to UTI Repeat urinalysis is ordered with culture and sensitivity if indicated . # JANY present on admission Possibly secondary to ATN Resolved # allergic rhinitis with secondary cough stopped Zyrtec Flonase nasal spray # DVT prophylaxis SQ Lovenox Patient is here secondary to her mental health an acute psychosis. Patient is currently on Abilify, Cogentin, divalproex sodium, Prozac, lithium, olanzapine which are all psychiatric medication she needs repeat psychiatric evaluation to further assist in her discharge. Date of Service: May 14, 2025 Billing Provider: LAUREN MALDONADO MD Common Visit Codes: [id number] INP/OBS CARE(HIGH) LAUREN MALDONADO MD May 14, 2025 19:54
[2025-05-14 22:00] VITALS: BP 101/62; PULSE 92; RESP 20; TEMP 98.3; O2SAT 95
[2025-05-15 09:35] LABS: MEAN PLATELET VOLUME 8.1 FL (7.4-10.4); RED CELL DISTRIBUTION WIDTH 14.4 % (11.5-14.5)
[2025-05-15 09:47] LABS: CREATININE 0.73 MG/DL (0.40-0.90); TOTAL CARBON DIOXIDE 28.3 MMOL/L (24-32); eCRCL 58 ML/MIN; eGFR 78 ML/MIN
[2025-05-15 11:00] VITALS: BP 117/75; PULSE 90; RESP 18; TEMP 97.3; O2SAT 95
[2025-05-15 18:00] VITALS: BP 134/86; PULSE 92; RESP 20; TEMP 97.9; O2SAT 97
--- NOTE | 2025-05-15 19:51 | PROGRESS NOTE ---
Daily Progress Note Providers to CC ~ Antibiotic Timeout Antibiotic Ordered?: No Subjective Seen in presence of sitter today. Patient has obsessive compulsive disorder signs which I noticed during exam. Patient looks come for table ambulating well. Objective Vital Signs Date Time Temp Pulse Resp B/P (MAP) Pulse Ox O2 Delivery O2 Flow Rate FiO2 05/15/25 11:00 97.3 90 18 117/75 (89) 95 Room Air 05/14/25 20:00 0.0 Result Diagram: 05/15/2592305/15/25923 General-patient not in any acute distress, alert awake oriented, chronically ill-appearing, Obese, looks comfortable HEENT-atraumatic normocephalic, neck supple without elevated JVD, no thyromegaly or carotid bruit. No lymphadenopathy bilaterally. Eyes-no icterus or pallor seen in eyes Chest-clear to auscultation bilaterally, breathing nonlabored no tachypnea, no wheezing, no crepitation, no crackles. Heart-S1-S2 normal, regular heart rate no murmur Abdomen bowel sounds positive on auscultation, soft nondistended nontender no guarding, no rigidity Skin no active skin rash Neurology-grossly intact, nonfocal awake, cooperated during physical examination and responded to verbal commands Extremity- no pedal edema able to move all 4 extremities, ambulates Psychiatry - patient is confused or agitated cooperated during physical examination. signs of psychosis present Problem\Assessment\Plan Problems/Diagnosis: (1) Gravely disabled # gravely disabled/ bipolar disorder- History of psychiatric hospitalization On a 179. hold with a [facility] has placed the patient on a 5150 hold Patient needs placement They suggested a start the patient on Abilify which he has done well in the past As an outpatient is switch her over to Abilify injections once in a month # pyuria likely secondary to UTI/cystitis-Completed a course of p.o. Keflex # metabolic encephalopathy secondary to UTI Repeat urinalysis is ordered with culture and sensitivity if indicated . # JANY present on admission Possibly secondary to ATN Resolved # allergic rhinitis with secondary cough stopped Zyrtec Flonase nasal spray # DVT prophylaxis SQ Lovenox Patient is here secondary to her mental health an acute psychosis. Patient is currently on Abilify, Cogentin, divalproex sodium, Prozac, lithium, olanzapine which are all psychiatric medication . freight manager Supriya working on discharge plan Date of Service: May 15, 2025 Billing Provider: LAUREN MALDONADO MD Common Visit Codes: [id number] INP/OBS CARE(HIGH) LAUREN MALDONADO MD May 15, 2025 19:51
[2025-05-15 22:00] VITALS: BP 135/64; PULSE 87; RESP 14; TEMP 97.8; O2SAT 93
[2025-05-16 09:48] VITALS: RESP 16; O2SAT 96
[2025-05-16 10:00] VITALS: BP 128/86; PULSE 105; RESP 16; TEMP 97.1; O2SAT 96
--- NOTE | 2025-05-16 17:13 | PROGRESS NOTE ---
Daily Progress Note Providers to CC ~ Antibiotic Timeout Antibiotic Ordered?: No Subjective Patient was seen in surgical unit in presence of [facility]. As per patient she was following Dr. Mesa for bipolar disorder and he changed multiple medications on her . she was keeping her all old bottles also with her and looks like currently she is on multiple antipsychotic med which I am not sure she was taking at home? Objective Vital Signs Date Time Temp Pulse Resp B/P (MAP) Pulse Ox O2 Delivery O2 Flow Rate FiO2 05/16/25 10:00 97.1 105 16 128/86 (100) 96 Room Air 05/16/25 09:48 0.0 Result Diagram: 05/15/2592305/15/25923 General-patient not in any acute distress, alert awake oriented, chronically ill-appearing, Obese, looks comfortable HEENT-atraumatic normocephalic, neck supple without elevated JVD, no thyromegaly or carotid bruit. No lymphadenopathy bilaterally. Eyes-no icterus or pallor seen in eyes Chest-clear to auscultation bilaterally, breathing nonlabored no tachypnea, no wheezing, no crepitation, no crackles. Heart-S1-S2 normal, regular heart rate no murmur Abdomen bowel sounds positive on auscultation, soft nondistended nontender no guarding, no rigidity Skin no active skin rash Neurology-grossly intact, nonfocal awake, cooperated during physical examination and responded to verbal commands Extremity- no pedal edema able to move all 4 extremities, ambulates. Right leg looks erythematous signs of early cellulitis noticed Psychiatry - patient is confused or agitated cooperated during physical examination. signs of psychosis present Problem\Assessment\Plan Problems/Diagnosis: (1) Gravely disabled # gravely disabled/ bipolar disorder- History of psychiatric hospitalization On a hold with a [facility] has placed the patient on a 5150 hold Patient needs placement They suggested a start the patient on Abilify which he has done well in the past As an outpatient is switch her over to Abilify injections once in a month # pyuria likely secondary to UTI/cystitis-Completed a course of p.o. Keflex # metabolic encephalopathy secondary to UTI Repeat urinalysis is ordered with culture and sensitivity if indicated . # JANY present on admission Possibly secondary to ATN Resolved # allergic rhinitis with secondary cough stopped Zyrtec Flonase nasal spray # right lower extremity erythema? Possible early cellulitis- sed rate and procalcitonin ordered we will apply topical antibiotic cream over right leg for now # DVT prophylaxis SQ Lovenox Patient is here secondary to her mental health an acute psychosis. Patient is currently on Abilify, Cogentin, divalproex sodium, Prozac, lithium, olanzapine which are all psychiatric medication . manager mobile Supriya working on discharge plan Date of Service: May 16, 2025 Billing Provider: LAUREN MALDONADO MD Common Visit Codes: [id number] INP/OBS CARE(HIGH) LAUREN MALDONADO MD May 16, 2025 17:13
[2025-05-16 18:00] VITALS: BP 120/62; PULSE 88; RESP 16; TEMP 96.9; O2SAT 97
[2025-05-16 20:00] VITALS: RESP 16; O2SAT 97
[2025-05-16 22:00] VITALS: BP 117/57; PULSE 84; RESP 18; TEMP 98.3; O2SAT 97
[2025-05-17 06:43] VITALS: BP 136/85; PULSE 83; RESP 16; TEMP 97.6; O2SAT 94
[2025-05-17 08:55] VITALS: RESP 16; O2SAT 94
[2025-05-17 18:00] VITALS: BP 121/86; PULSE 81; RESP 15; TEMP 98.4; O2SAT 95
--- NOTE | 2025-05-17 19:09 | PROGRESS NOTE ---
Daily Progress Note Providers to CC ~ Antibiotic Timeout Antibiotic Ordered?: No Subjective Was seen in his room looked comfortable no new concerns . Patient is waiting for safe discharge plan. Nursing Staff Codey requesting me to order special test to diagnosed dementia. Objective Vital Signs Date Time Temp Pulse Resp B/P (MAP) Pulse Ox O2 Delivery O2 Flow Rate FiO2 05/17/25 08:55 16 94 Room Air 05/17/25 06:43 97.6 83 136/85 (102) 05/16/25 20:00 0.0 Result Diagram: 05/15/2592305/15/25923 General-patient not in any acute distress, alert awake oriented, chronically ill-appearing, Obese, looks comfortable HEENT-atraumatic normocephalic, neck supple without elevated JVD, no thyromegaly or carotid bruit. No lymphadenopathy bilaterally. Eyes-no icterus or pallor seen in eyes Chest-clear to auscultation bilaterally, breathing nonlabored no tachypnea, no wheezing, no crepitation, no crackles. Heart-S1-S2 normal, regular heart rate no murmur Abdomen bowel sounds positive on auscultation, soft nondistended nontender no guarding, no rigidity Skin no active skin rash Neurology-grossly intact, nonfocal awake, cooperated during physical examination and responded to verbal commands Extremity- no pedal edema able to move all 4 extremities, ambulates. Right leg looks erythematous signs of early cellulitis noticed Psychiatry - patient is confused or agitated cooperated during physical examination. signs of psychosis present Problem\Assessment\Plan Problems/Diagnosis: (1) Gravely disabled # gravely disabled/ bipolar disorder- History of psychiatric hospitalization On a 1798. hold with a [facility] has placed the patient on a 5150 hold Patient needs placement They suggested a start the patient on Abilify which he has done well in the past As an outpatient is switch her over to Abilify injections once in a month # pyuria likely secondary to UTI/cystitis-Completed a course of p.o. Keflex # metabolic encephalopathy secondary to UTI Repeat urinalysis is ordered with culture and sensitivity if indicated . # JANY present on admission Possibly secondary to ATN Resolved # allergic rhinitis with secondary cough stopped Zyrtec Flonase nasal spray # right lower extremity erythema? Possible early cellulitis- sed rate and procalcitonin ordered we will apply topical antibiotic cream over right leg for now # DVT prophylaxis SQ Lovenox Patient is here secondary to her mental health an acute psychosis. Patient is currently on Abilify, Cogentin, divalproex sodium, Prozac, lithium, olanzapine which are all psychiatric medication . program manager rn Supriya working on discharge plan Date of Service: May 17, 2025 Billing Provider: LAUREN MALDONADO MD Common Visit Codes: [id number] INP/OBS CARE(LOW) LAUREN MALDONADO MD May 17, 2025 19:09
[2025-05-17 22:00] VITALS: BP 133/49; PULSE 88; RESP 18; TEMP 98.1; O2SAT 99
[2025-05-18 06:08] VITALS: BP 88/54; PULSE 82; RESP 18; TEMP 97.3; O2SAT 98
[2025-05-18 06:38] VITALS: BP 107/59
[2025-05-18 08:00] VITALS: RESP 18; O2SAT 98
[2025-05-18 10:00] VITALS: BP 125/72; PULSE 92; RESP 16; TEMP 96.2; O2SAT 97
[2025-05-18 14:35] LABS: MEAN PLATELET VOLUME 9.0 FL (7.4-10.4); RED CELL DISTRIBUTION WIDTH 14.3 % (11.5-14.5)
[2025-05-18 14:46] LABS: CREATININE 0.87 MG/DL (0.40-0.90); TOTAL CARBON DIOXIDE 30.2 MMOL/L (24-32); eCRCL 49 ML/MIN; eGFR 64 ML/MIN
--- NOTE | 2025-05-18 19:39 | PROGRESS NOTE ---
Daily Progress Note Providers to CC ~ Antibiotic Timeout Antibiotic Ordered?: No Subjective Patient was seen in presence of sitter looks comfortable no new concerns cooperated well during physical examination and she is waiting for safe discharge Objective Vital Signs Date Time Temp Pulse Resp B/P (MAP) Pulse Ox O2 Delivery O2 Flow Rate FiO2 05/18/25 10:00 96.2 92 16 125/72 (89) 97 Nasal Cannula 05/16/25 20:00 0.0 Result Diagram: 05/18/25 1339 05/18/25 1339 General-patient not in any acute distress, alert awake oriented, chronically ill-appearing, Obese, looks comfortable HEENT-atraumatic normocephalic, neck supple without elevated JVD, no thyromegaly or carotid bruit. No lymphadenopathy bilaterally. Eyes-no icterus or pallor seen in eyes Chest-clear to auscultation bilaterally, breathing nonlabored no tachypnea, no wheezing, no crepitation, no crackles. Heart-S1-S2 normal, regular heart rate no murmur Abdomen bowel sounds positive on auscultation, soft nondistended nontender no guarding, no rigidity Skin no active skin rash Neurology-grossly intact, nonfocal awake, cooperated during physical examination and responded to verbal commands Extremity- no pedal edema able to move all 4 extremities, ambulates. Right leg looks erythematous signs of early cellulitis noticed Psychiatry - patient is confused or agitated cooperated during physical examination. signs of psychosis present Problem\Assessment\Plan Problems/Diagnosis: (1) Gravely disabled # gravely disabled/ bipolar disorder- History of psychiatric hospitalization On a 1798. hold with a [facility] has placed the patient on a 5150 hold Patient needs placement They suggested a start the patient on Abilify which he has done well in the past As an outpatient is switch her over to Abilify injections once in a month # pyuria likely secondary to UTI/cystitis-Completed a course of p.o. Keflex # metabolic encephalopathy secondary to UTI Repeat urinalysis is ordered with culture and sensitivity if indicated . # JANY present on admission Possibly secondary to ATN Resolved # allergic rhinitis with secondary cough stopped Zyrtec Flonase nasal spray # right lower extremity erythema? Possible early cellulitis- sed rate and procalcitonin ordered we will apply topical antibiotic cream over right leg for now # DVT prophylaxis SQ Lovenox Patient is here secondary to her mental health an acute psychosis. Patient is currently on Abilify, Cogentin, divalproex sodium, Prozac, lithium, olanzapine which are all psychiatric medication . table games shift manager Supriya working on discharge plan Date of Service: May 18, 2025 Billing Provider: LAUREN MALDONADO MD Common Visit Codes: [id number] INP/OBS CARE(MOD) LAUREN MALDONADO MD May 18, 2025 19:39
[2025-05-18 20:00] VITALS: RESP 18; O2SAT 96
[2025-05-18 22:00] VITALS: BP 120/54; PULSE 83; RESP 18; TEMP 98; O2SAT 96
[2025-05-19 06:00] VITALS: BP 134/51; PULSE 79; RESP 16; TEMP 97.9; O2SAT 97
[2025-05-19 08:00] VITALS: RESP 16; O2SAT 96
[2025-05-19 10:00] VITALS: BP 135/63; PULSE 91; RESP 16; TEMP 97.6; O2SAT 98
--- NOTE | 2025-05-19 18:13 | VASCULAR REPORT ---
Right lower extremity venous duplex Clinical History: Right lower extremity pain/swelling. Comparison: None Technique: Duplex Doppler evaluation of the deep venous system of the right lower extremity from the common femo ral vein to the popliteal vein including color Doppler and spectral/pulsed waveform analysis was perf ormed. Additional images of the left common femoral vein were obtained. Findings: The right common femoral vein demonstrates appropriate compressibility and waveform variability. There is compressibility/patency of the right great saphenous vein at the proximal thigh. The right femoral vein demonstrates appropriate compressibility and waveform variability. The right deep femoral vein demonstrates appropriate compressibility and waveform variability. The right popliteal vein demonstrates appropriate compressibility and waveform variability. The right peroneal vein is not well visualized. The left common femoral vein appears patent. Impression: 1. No visible right lower extremity deep venous thrombosis. 2. Contralateral common femoral vein is patent.
[2025-05-19 18:50] VITALS: BP 126/68; PULSE 91; RESP 20; TEMP 97.2; O2SAT 97
--- NOTE | 2025-05-19 19:39 | PROGRESS NOTE ---
Daily Progress Note Providers to CC ~ Antibiotic Timeout Antibiotic Ordered?: No Subjective The patient complains of swelling in her lower extremities and her right lower extremity significantly more swollen than the left thus I ordered a venous ultrasound to evaluate for DVT which was negative. The [facility] department is requested a lab phosphorlated TAU 217 lab to evaluate for Alzheimer's disease which has been ordered Objective Vital Signs Date Time Temp Pulse Resp B/P (MAP) Pulse Ox O2 Delivery O2 Flow Rate FiO2 05/19/25 10:00 97.6 91 16 135/63 (87) 98 05/19/25 08:00 Room Air 05/16/25 20:00 0.0 Result Diagram: 05/18/25 1339 05/18/25 1339 Gen. No acute distress alert and oriented person and place HEENT significant right-sided nasal congestion, minimal on the left Lungs coarse breath sounds in the upper lung guillory otherwise clear to ascultation bilaterally, no wheezes rales or rhonchi appreciated Heart normal sinus rhythm no murmurs rubs or clicks noted Abdomen soft nontender bowel sounds are normoactive Lower extremities no clubbing cyanosis appreciated bilaterally mild edema of the left lower extremity significant edema on the right Problem\Assessment\Plan Problems/Diagnosis: (1) Gravely disabled # gravely disabled/ bipolar disorder- History of psychiatric hospitalization On a 179.11 hold with a [facility] has placed the patient on a 5150 hold Patient needs placement They suggested a start the patient on Abilify which he has done well in the past As an outpatient is switch her over to Abilify injections once in a month 05/19 the [facility] was requested a Alzheimer's disease lab be ordered a phosphorlated TAU 217 which has been ordered # pyuria likely secondary to UTI/cystitis-Completed a course of p.o. Keflex # metabolic encephalopathy secondary to UTI Repeat urinalysis is ordered with culture and sensitivity if indicated . # JANY present on admission Possibly secondary to ATN Resolved # allergic rhinitis with secondary cough stopped Zyrtec Flonase nasal spray # right lower extremity erythema? Possible early cellulitis- sed rate and procalcitonin ordered we will apply topical antibiotic cream over right leg for now # significant right lower extremity edema- Much greater than on the left Venous ultrasound was negative for DVT # DVT prophylaxis SQ Lovenox Patient is here secondary to her mental health an acute psychosis. Patient is currently on Abilify, Cogentin, divalproex sodium, Prozac, lithium, olanzapine which are all psychiatric medication . school office manager Supriya working on discharge plan Date of Service: May 19, 2025 Billing Provider: TRANG LERMA DO Common Visit Codes: [id number] INP/OBS CARE(HIGH) TRANG LERMA DO May 19, 2025 19:39
[2025-05-20 08:00] VITALS: RESP 16; O2SAT 98
[2025-05-20 18:00] VITALS: BP 126/68; PULSE 91; RESP 20; TEMP 97.2; O2SAT 97
--- NOTE | 2025-05-20 20:32 | PROGRESS NOTE ---
Daily Progress Note Providers to CC ~ Antibiotic Timeout Antibiotic Ordered?: No Subjective The patient has not no acute complaints today she was taken off of the 5150 hold by [facility] the sitter is discontinued Objective Vital Signs Date Time Temp Pulse Resp B/P (MAP) Pulse Ox O2 Delivery O2 Flow Rate FiO2 05/20/25 08:00 16 98 Room Air 05/19/25 18:50 97.2 91 126/68 (87) 0.0 05/19/25 18:50 21 Result Diagram: 05/18/25 1339 05/18/25 1339 Gen. No acute distress alert and oriented person and place HEENT significant right-sided nasal congestion, minimal on the left Lungs coarse breath sounds in the upper lung guillory otherwise clear to ascultation bilaterally, no wheezes rales or rhonchi appreciated Heart normal sinus rhythm no murmurs rubs or clicks noted Abdomen soft nontender bowel sounds are normoactive Lower extremities no clubbing cyanosis appreciated bilaterally mild edema of the left lower extremity significant edema on the right Problem\Assessment\Plan Problems/Diagnosis: (1) Gravely disabled # gravely disabled/ bipolar disorder- History of psychiatric hospitalization On a hold with a sitter [facility] has placed the patient on a 5150 hold Patient needs placement They suggested a start the patient on Abilify which he has done well in the past As an outpatient is switch her over to Abilify injections once in a month 05/19 the [facility] was requested a Alzheimer's disease lab be ordered a phosphorlated TAU 217 which has been ordered 05/20 the 5150 hold is discontinued by [facility] day # pyuria likely secondary to UTI/cystitis-Completed a course of p.o. Keflex # metabolic encephalopathy secondary to UTI Repeat urinalysis is ordered with culture and sensitivity if indicated . # JANY present on admission Possibly secondary to ATN Resolved # allergic rhinitis with secondary cough stopped Zyrtec Flonase nasal spray # right lower extremity erythema? Possible early cellulitis- sed rate and procalcitonin ordered we will apply topical antibiotic cream over right leg for now # significant right lower extremity edema- Much greater than on the left Venous ultrasound was negative for DVT # DVT prophylaxis SQ Lovenox Patient is here secondary to her mental health an acute psychosis. Patient is currently on Abilify, Cogentin, divalproex sodium, Prozac, lithium, olanzapine which are all psychiatric medication . manager performance Supriya working on discharge plan Date of Service: May 20, 2025 Billing Provider: TRANG LERMA DO Common Visit Codes: [id number] INP/OBS CARE(MOD) TRANG LERMA DO May 20, 2025 20:31
[2025-05-20 22:00] VITALS: BP 116/87; PULSE 90; RESP 18; TEMP 98.2; O2SAT 98
[2025-05-21 06:00] VITALS: BP 119/54; PULSE 79; RESP 17; TEMP 97.9; O2SAT 96
[2025-05-21 08:00] VITALS: RESP 16; O2SAT 98
[2025-05-21 18:00] VITALS: BP 134/53; PULSE 87; RESP 19; TEMP 97.5; O2SAT 98
--- NOTE | 2025-05-21 18:45 | PROGRESS NOTE ---
Progress Note Dictate Providers to CC ~ Central Line/PICC still needed: N\\A Antibiotic Ordered?: No MRSA Education MRSA Education Provided to pt: No Objective Vitals Vital Signs Date Time Temp Pulse Resp B/P (MAP) Pulse Ox O2 Delivery O2 Flow Rate FiO2 05/21/25 08:00 16 98 Room Air 0.0 21 05/21/25 06:00 97.9 79 119/54 (75) Lab Results: 05/18/25 1339 05/18/25 1339 Psychiatrist's Progress Note Date of Service: May 21, 2025 Notes PATIENT NAME: LIDIA TREVINO DATE OF EVALUATION: May CONSULTING PROVIDER: MU LUCIA CONSULTING SERVICE: PSYCHIATRY MANAGING MEDICAL PROVIDER: TRANG LERMA DO REASON FOR CONSULTATION: MENTAL HEALTH EVALUATION ASSESSMENT: The patient appears in no acute distress at this time. The patient presents as hyperverbal, cooperative, and engaged during session. Netta is A/O x4 and able to make needs know. Netta was sitting up in igor-chair, wearing a hospital gown and a robe. The patient endorses she was at [facility] for "my well-being and my perception of what you see as different." The patient endorses she is lives in apartment in [place]. The patient endorses she was diagnosed with depression back in 1978 and that she is currently not taking any medications and she has been hospitalized 10 times for psychosis. The patient endorses she currently attends Dr. Mesa's office for her mental health but her last visit was about 4 1/2 months ago. The patient was very hard to follow. The patient was going on and on about her having an issues with a PA at Dr. Mesa'a office because the PA was in love with her ex-. The patient endorses that this PA was attempting to write a book about her without her permission. "she tried to have me sign something but I was like no I am not giving you to permission to write a book about me." Denies SI. Denies HI. Denies AVH. Unsure if the patient's issues are related to undiagnosed dementia or francis. Treatment RECOMMENDATIONS Discontinue oral Abilify 14 days after injection was given Repeat lithium level Depakote level Follow-up with lab on results for phosphorlated TAU 217 lab is still pending Total Time Spent 90 minutes REVIEW OF Clinical notes [X ] RN notes [X] PCT documentation [X] SW notes Labs [ X] Medications [X] Care trends/care activity [X] Vitals [X] DISCUSSION WITH lime vat tender [X] Staff SW Treatment Team Provider Sign Out Appearnace: Other (APPROPRIATE. WEARING HOSPITAL GOWN.) Speech: Other (CIRCUMSTANTIAL) Eye Contact: Other (INTERMITTENT) Motor Activity: Normal Affect: Constricted Memory Impairment: Long-term Attention: Normal Hallucinations: None Other: None Suicidality: None Homicidality: None Delusions: None Behavior: Cooperative Insight: Fair, Poor Judgment: Fair, Poor Appearnace: Other (APPROPRIATE. OBESE TALL FEMALE. WEARING ROBE WITH HOSPITAL GOWN UNDERNEATH.) Speech: Tangential, Other (CIRCUMSTANTIAL) Eye Contact: Normal Motor Activity: Normal Affect: Full Orientation Impairment: None Memory Impairment: None Attention: Normal Hallucinations: None Other: None Suicidality: None Homicidality: None Delusions: Paraniod Behavior: Hyperactive Insight: Poor Judgment: Poor CODING VISIT-PSYCHIATRY Date of Service: May 21, 2025 Billing Provider: BRIA MURRELL APRN Psych Common Visit Codes: CONSULT ONLY BRIA MURRELL APRN May 21, 2025 18:45
[2025-05-21 20:30] VITALS: RESP 18
--- NOTE | 2025-05-21 21:29 | PROGRESS NOTE ---
Daily Progress Note Providers to CC ~ Antibiotic Timeout Antibiotic Ordered?: No Subjective The patient has no acute medical complaints and per nursing staff there was no m edical concerns other than the patient is psychotic and thought she has a kangaroo in her hospital room Objective Vital Signs Date Time Temp Pulse Resp B/P (MAP) Pulse Ox O2 Delivery O2 Flow Rate FiO2 05/21/25 08:00 16 98 Room Air 0.0 21 05/21/25 06:00 97.9 79 119/54 (75) Result Diagram: 05/18/25 1339 05/18/25 1339 Gen. No acute distress alert and oriented person and place HEENT significant right-sided nasal congestion, minimal on the left Lungs coarse breath sounds in the upper lung guillory otherwise clear to ascultation bilaterally, no wheezes rales or rhonchi appreciated Heart normal sinus rhythm no murmurs rubs or clicks noted Abdomen soft nontender bowel sounds are normoactive Lower extremities no clubbing cyanosis appreciated bilaterally mild edema of the left lower extremity significant edema on the right Problem\Assessment\Plan Problems/Diagnosis: (1) Gravely disabled # gravely disabled/ bipolar disorder- History of psychiatric hospitalization On a 1798. hold with a sitter [facility] has placed the patient on a 5150 hold Patient needs placement They suggested a start the patient on Abilify which he has done well in the past As an outpatient is switch her over to Abilify injections once in a month 05/[address] [facility] was requested a Alzheimer's disease lab be ordered a phosphorlated TAU 217 which has been ordered 05/20 the 5150 hold is discontinued [address] [facility] day 05/21 evaluated by Jo-Ann Blackman relief man today # pyuria likely secondary to UTI/cystitis-Completed a course of p.o. Keflex # metabolic encephalopathy secondary to UTI Repeat urinalysis is ordered with culture and sensitivity if indicated . # JANY present on admission Possibly secondary to ATN Resolved # allergic rhinitis with secondary cough stopped Zyrtec Flonase nasal spray # right lower extremity erythema? Possible early cellulitis- sed rate and procalcitonin ordered we will apply topical antibiotic cream over right leg for now # significant right lower extremity edema- Much greater than on the left Venous ultrasound was negative for DVT # DVT prophylaxis SQ Lovenox Patient is here secondary to her mental health an acute psychosis. Patient is currently on Abilify, Cogentin, divalproex sodium, Prozac, lithium, olanzapine which are all psychiatric medication . financial manager Supriya working on discharge plan Date of Service: May 21, 2025 Billing Provider: TRANG LERMA DO Common Visit Codes: [id number] INP/OBS CARE(MOD) TRANG LERMA DO May 21, 2025 21:29
[2025-05-21 22:00] VITALS: BP 134/65; PULSE 93; RESP 16; TEMP 97.4; O2SAT 97
[2025-05-22 08:00] VITALS: RESP 15; O2SAT 97
[2025-05-22 12:00] VITALS: BP 124/53; PULSE 79; RESP 17; TEMP 97.5; O2SAT 97
[2025-05-22] MEDS ORDERED: CEPH250T PO (14:01)
--- NOTE | 2025-05-22 20:22 | DISCHARGE SUMMARY ---
Discharge Summary Providers to No new complaint today ready to be discharged home ~ Discharge Summary Assessment Bipolar disorder in exacerbation Dementia UTI Admission Diagnosis: confusion, dementia, possible UTI Admission Diagnosis Comment: Bipolar disorder in exacerbation Dementia UTI Hospital Course DATE OF ADMISSION: May 01, 2025 DATE OF DISCHARGE: May 22, 2025 Discharge Diagnosis\Comment: Bipolar disorder in exacerbation Dementia UTI Operations\Procedures: None Consultants: Psychiatrist and virtual neurologist Complications: Non Condition on DC: Stable for transfer Discharge Summary: 74 years old female with history of grave disability and dementia bipolar disorders with psychiatric episode brought to the ED by paramedics due to confusion and bizarre behavior. Patient can not provide information all information gathered from medical staff and her daughter on the phone ( [facility] [phone] ). The daughter reported she lives in [place] and she received a call from patient's neighbor regarding her bizarre behavior including breaking the glass in her house and walking with bare food in the Street. The daughter reported she noticed patient stopped taking her medication since last week.When I talked with the patient's she said she did not want to give me in formation regarding her medical history. When I ask about her date of she said she preferred to not give me the information. She does not know who is the president of [facility] and not oriented to place as well. After admission patient was extensively evaluated treated consulted by psychiatrist and virtual neurologist, today she feels better no complaint asking to be discharged home, he will be discharged in stable condition follow-up with PCP, psychiatrist in the morning, medication reconciled, today on physical exam Vital signs, stable ,afebrile. Pulse Oximetry reflects adequate oxygenation. General: well developed, well nourished. Awake , alert, and oriented x4, resting comfortably in the bed, in no acute distress . Skin: Warm, dry, no pallor, no rash or petechiae. HEENT: Atraumatic, normocephalic, EOMI, anicteric sclera B; pink conjunctiva; PERRLA, normal oropharynx, moist oral and nasal mucosa. Tympanic membrane , nose , throat clear. Neck: Trachea midline. Supple, full range of motion, no JVD, bruit , hepatojugular reflex , lymphadenopathy or masses, or other lesions Cardiac: Regular rhythm, regular rate no murmurs, rubs, or gallops. Normal S1 and S2, no S3 noticed. PMI is normal. Respiratory: Equal breath sounds bilaterally, no tachypnea; lungs clear to auscultation bilaterally, no wheezing ,rub or rales, or crackles. Chest wall is symmetric and without deformity. No signs of trauma. Chest wall is nontender. No signs of respiratory distress. Resonance is normal upon percussion bilaterally. Gastrointestinal: Abdomen symmetric, non-distended, soft, non-tender, normal bowel sounds x4 quadrant, normoactive, no hepatosplenomegaly , no masses , no bruit, no flank pain bilaterally. No voluntary guarding, rebound, or rigidity. No tenderness to percussion. No pulsatile masses. Equal femoral pulses. No Carreon's sign or McBurney point tenderness. Back; no CVA tenderness bilaterally, no deformities. Neck and back are without deformity as well. No tenderness noted on palpation of the spinous processes. Spinous processes are midline. Cervical, thoracic, and lumbar paraspinal muscles are not tender and are without spasm. G Musculoskeletal: Extremities, normal range of motion, non-tender, muscle strength 5/5 x 4. Negative Homans signs bilaterally on lower extremity. Distal pulses full symmetrical, no clubbing, cyanosis , edema. Neurological: Speech is clear, alert, and oriented x 4. No motor or sensory deficit, deep tendon reflexes normal, cerebellar intact. Cranial nerves II-XII intact. Psych: Alert and or appropriate, normal affect. Vascular: Good distal pulses, which are equal x4; capillary refill less than 2 seconds. Lymphatic, no lymphadenopathy. *Problems/Diagnosis: (1) Gravely disabled Status: Acute Total Time Spent on D/C: > 30 Minutes Date of Service: May 22, 2025 Billing Provider: SELWYN LIM MD Common Visit Codes: 59657-GCQ/OBS DISCH DAY >30min SELWYN LIM MD May 22, 2025 20:22
== END 2025-05-22 17:40 | disposition home health service (06) | DRG 70 ==
LOC: ER 10:34 → ED HOLD 05-01 22:41 → SUR 3N 05-01 23:00
PROVIDERS: ADMIT Internal Medicine Critical Care Medicine; ATTEND Internal Medicine Critical Care Medicine
DX: G93.41 Metabolic encephalopathy (principal); N17.0 Acute kidney failure with tubular necrosis; N39.0 Urinary tract infection, site not specified; F03.90 Unspecified dementia, unspecified severity, without behavioral disturbance, psychotic disturbance, mood disturbance, and anxiety; Z20.822 Contact with and (suspected) exposure to COVID-19; I10 Essential (primary) hypertension; F20.9 Schizophrenia, unspecified; F31.9 Bipolar disorder, unspecified; J45.909 Unspecified asthma, uncomplicated; R41.89 Other symptoms and signs involving cognitive functions and awareness; Z88.5 Allergy status to narcotic agent; Z88.8 Allergy status to other drugs, medicaments and biological substances; I25.2 Old myocardial infarction
CPT/HCPCS: 36415; 80048; 80053; 80178; 80305; 80320; 81001; 83735; 84145; 84443; 85025; 85651; 87081; 87811; 93971; 96372; 96374; 99285; A6209; A6212; A6250; G0378; J1200; J1650; J3360; J3490